=== PATIENT | male | born 1935 | race Caucasian/White ===

== ENCOUNTER 2017-11-17 22:33 | Inpatient (IN) ==
[2017-11-18] MEDS ORDERED: Naloxone 0.4 MG/ML INJ IVP PRN (01:01)
[2017-11-18] MEDS ORDERED: 0.9 % Sodium Chloride 1,000 ML IVC SCH ×2 (01:15→01:51)
--- NOTE | 2017-11-18 01:18 | Internal Med History&Physical ---
<Tao Latham - Last Filed: 11/18/17 01:44> Date of Encounter: 11/18/17 Time of Encounter: 01:14 Assessment and Plan (1) Severe sepsis Current visit: Yes Status: Acute Severe sepsis secondary to UTI Sepsis criteria: Fever (103), Tachycardia (110), Tachypnea (28), Lactic Acid 11.1, Suspected UTI The patient has longstanding history of urinary retention and has been self- catheterizing in unsanitary ways according to family He did receive 3 liters fluid in the ED at [facility] We will get repeat lactic acid, blood cultures, urine culture, VBG We will give IV tylenol, 1L bolus of fluid, and then provide maintenance fluids We will start ceftriaxone IV pending cultures (2) UTI (urinary tract infection), bacterial Current visit: Yes Status: Acute Urinary tract infection, suspected, causative agent unknown Likely secondary to urinary retention + Self-catheterization We will start a au catheter, collect UA + Urine Cultures + Blood cultures Start Rocephin pending cultures (3) Acute encephalopathy Current visit: Yes Status: Acute Acute metabolic encephalopathy, likely secondary to severe sepsis and lactic acidosis Baseline mental status is unknown, although family state he is typically independent Although he was found on the group and reportedly "couldn't move" earlier, it's likely more related to infection Patient head CT was negative for intracranial process The patient has improved in mental function since his initial arrival to [place] We will continue to monitor (4) JORGE LUIS (acute kidney injury) Current visit: Yes Status: Acute Acute kidney injury, baseline renal function unknown Likely secondary to pre-renal azotemia/dehydration vs. Rhabdo, patient appears dry Serum cr 3.78, eGFR 15. Last known 09/27 serum cr. 1.43 The patient will receive one more bolus of NS, and then will receive 125mls/hr NS maintenance fluids Avoid nephrotoxic drugs, repeat BMP and CK (5) Dementia Current visit: Yes Status: Suspected Suspected dementia of unknown etiology [id number] states that he has several first degree relatives with dementia She says he's been forgetful, and has been failing to care for himself appropriately Baseline mental status is unknown at this time We will continue to monitor Qualifiers: Dementia type: unspecified type Dementia behavioral disturbance: with behavioral disturbance Qualified Code(s): 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 CT of all spinal levels show no jenaro abnormalities (7) Code status needs review Current visit: Yes Status: Acute Patient does not currently have advanced directive, however the family appears to be unsure about his wishes regarding code status. At this time, we will designate him a FULL CODE, however as mental function improves, if possible, the topic of code status should be addressed more thoroughly with the patient. (8) DVT prophylaxis Current visit: Yes Status: Acute SQ Heparin Internal Medicine - H&P: HPI Chief complaint: Weakness, altered mental status Admitted From: Intrahospital Transfer Plans for Post Hospital Care: Home History of present illness: Mr. Alejo is a 82 year old male with unknown medical history who presented to the [facility] ED[facility] to altered mental status and weakness. The patient apparently was found on the floor next to his bed by his sister at approximately 5:30 or 6 PM and was unable to talk, or move. The patient has never experienced this before. His medical history is largely unknown, and was given by his brother and [id number]. Apparently the patient has had problems with urinary retention for approximately one year and has seen Dr. Brown for approximately 3 weeks ago. One week ago he began self catheterizing and there was concern that the patient was not doing it in a sanitary way. Apparently he also has been relatively forgetful, and did not remember learning to do it properly. Despite this, the patient was operating well until today when he was found on the floor. It is not known how long he was on the floor, however he was apparently unable to move and can only move his eyes at the time he was found. He also is complaining of back pain earlier and yesterday. His sister- in-law mentions that she is concerned that he may be developing dementia. He apparently lives with 2 of the sisters who have argued developed Alzheimer's, and she has noticed that he has become more forgetful in recent times. He also appears to be withdrawing more, and is not overly social or willing to disclose facts about his life to anyone, including family. Because of this, she is unsure of whether or not he has significant medical history. She does say that [facility] approximately one year ago when he was kicked out of their service, and he only recently started seeing a nurse practitioner for primary care who started to his blood pressure medications again. They are unaware of any other concerns from the patient. Past Med Surg Social Fam HX - Past Medical History Medical history: cancer - Social History Smoking Status: Current every day smoker Smokeless Tobacco Status: No Alcohol use: occasionally Drug use: none Internal Medicine - H&P: Meds 3 Allergy/AdvReac Type Severity Reaction Status Date / Time No Known Drug Allergies Allergy Unknown none Verified 11/18/17 01:29 ROS unobtainable: due to mental status Review of systems: The patient is unable to communicate effectively, nor is he able to respond appropriately to any sort of questions. - Constitutional Vitals: Temp Pulse Resp BP Pulse Ox 103.0 F H 110 28 145/79 97 11/18/17 00:23 11/18/17 00:23 11/18/17 00:23 11/18/17 00:23 11/18/17 00:23 Exam: Gen.: Vitals noted. patient is alert only to physical stimuli, is not oriented nor can answer any questions or respond to any orders HEENT: oropharynx clear, Normocephalic, atraumatic Neck: Supple. No adenopathy. Cardiac: RRR but rapid, no murmur, +S1/S2 Pulmonary: CTA bilaterally, no wheezes, rales or rhonchi, equal chest expansion Abdomen: soft, patient did show visible grimace on face upon palpation of the lower abdomen Backlimited exam, patient did not seem to respond anymore so to stimulation of the baclofen just turning in general Extremities: 1+ BLE edema, nontender calf, no cyanosis or clubbing Neuro: difficult to assess due to altered mental status and somnolence <Janie Toussaint - Last Filed: 11/18/17 06:10> Date of Encounter: 11/18/17 Internal Medicine - H&P: HPI History of present illness: Mr. Alejo is a 82 year old male All Systems PM: A 10-system review of systems was performed and is negative for pertinent findings except as documented above in the HPI. - Constitutional Vitals: Temp Pulse Resp BP Pulse Ox 98.7 F 74 22 103/54 97 11/18/17 05:06 11/18/17 05:06 11/18/17 05:06 11/18/17 05:06 11/18/17 05:06 Internal Med - H&P Results - Labs CBC & Chem 7: 11/18/17 01:35 11/18/17 01:35 Labs: Short CBC 11/18/17 Range/Units 01:35 WBC 26.7 H (4.3-11.1) K/mcL Hgb 11.8 L (12.9-16.9) g/dL Hct 34.5 L (37.5-50.1) % Plt Count 201 (140-400) K/mcL Neutrophils # 24.7 H (1.6-8.9) K/mcL BMP 11/18/17 01:35 Sodium 140 Potassium 4.0 Chloride 110 H Carbon Dioxide 16 L BUN 54 H Creatinine 3.26 H Glucose 129 H Calcium 8.6 Cardiac Enzymes 11/18/17 Range/Units 01:35 Troponin I 0.51 H* (< 0.04) ng/mL Liver Function 11/18/17 Range/Units 01:35 Total Bilirubin 0.9 (0.3-1.0) mg/dL AST 53 H (13-39) Units/L ALT 13 (7-52) Units/L Alkaline Phosphatase 116 H (34-104) Units/L Albumin 3.2 L (3.5-5.7) g/dL Urine 11/18/17 Range/Units 03:10 Urine Color Yellow (Yellow) Urine Clarity Cloudy A (Clear) Urine pH 8.5 H (5.0-8.0) pH Units Ur Specific [place] 1.015 (1.010-1.025) Urine Protein 100 H (Neg-Trace) mg/dL Urine Glucose (UA) Normal (Normal) mg/dL - ABG Interpretation ABG results: 11/18/17 01:53 VBG pH 7.25 L VBG pCO2 38 L VBG pO2 45 VBG HCO3 17 L - Attending Attestation I examined this patient and my medical decision-making was reviewed with the Resident Physician Dr. Latham. I agree with the documented findings, disposition and treatment plan as described except to the extent set forth below. This is an 82 y/o M with known PMH of Dementia, HTN, BPH, chronic urinary incontinence for which pt has been following with Urology Dr. Brown who suggested for frequent self straight catheter at home, now he was taken to [facility] last night when family found him on the floor in unresponsive and confused state. Pt does have severe sepsis with possible UTI. He is admitted here for further higher level of care. Pt is still confused and incoherent, however he started waking up now. Gen: Semi alert, awake, not oriented... unable to follow any commands Chest: Diminished BS b/l no crackles Heart: S1S2+ Tachycardia Ext: No edema, no tenderness a/p 1. Severe sepsis 2. Acute UTI 3. Acute delirium due to toxic + Metabolic encephalopathy IV hydration Empirical abx Rocephin f/u on Urine cx, blood cx trend on lactic acid 4. Acute NSTEMI Due to demand ischemia with Sepsis Cont trend on trop 5. JORGE LUIS IV fluids monitor Cr closely will obtain U/S of Kidney
[2017-11-18] MEDS ORDERED: 0.9 % Sodium Chloride 1,000 ML IVC ONE (01:49)
[2017-11-18] MEDS ORDERED: Acetaminophen IV 1,000 MG/100 ML INFUS..BTL IVPB ONE (01:50)
[2017-11-18 01:51] LABS: Basophils # 0.1 K/mcL (0.0-0.2); Basophils % 0.2 %; Hematocrit 34.5 % (37.5-50.1); Hemoglobin 11.8 g/dL (12.9-16.9); Immature Granulocytes % 0.7 % (0-4); Lymphocytes # 0.7 K/mcL (0.6-4.6); Lymphocytes % 2.6 %; Mean Corpuscular HGB Conc 34.2 g/dL (31.6-35.5); Mean Corpuscular Hemoglobin 28.9 pg (28.0-33.3); Mean Corpuscular Volume 84.4 fL (83.0-100.0); Mean Platelet Volume 10.8 fL (9.4-12.4); Monocytes % 3.9 %; Neutrophils # 24.7 K/mcL (1.6-8.9); Platelet Count 201 K/mcL (140-400); Red Blood Count 4.09 M/mcL (4.19-5.50); Red Cell Distribution Width 13.1 % (11.5-14.5); Segmented Neutrophils % 92.6 %
[2017-11-18 01:54] LABS: Prothrombin Time 22.4 Seconds (9.4-12.1)
[2017-11-18 01:57] LABS: Activated Partial Thrombo Time 45.5 Seconds (26.0-36.0)
[2017-11-18 02:04] LABS: VBG HCO3 17 mEq/L (21-27); VBG PCO2 38 mmHg (41-51); VBG PH 7.25 pH Units (7.32-7.42); VBG PO2 45 mmHg (25-50)
[2017-11-18 02:09] LABS: Albumin 3.2 g/dL (3.5-5.7); Bilirubin,Total 0.9 mg/dL (0.3-1.0); Calcium 8.6 mg/dL (8.6-10.3); Globulin 3.1 g/dL (2.4-3.5); Magnesium 1.6 mg/dL (1.6-2.6); Platelet Estimate Normal (Normal); Total Protein 6.3 g/dL (6.4-8.9); Toxic Granulation Present (Not Present); Toxic Vacuolation Present (Not Present)
[2017-11-18] MEDS: cefTRIAXone 1,000 MG in Water for inj. (sterile) 10 ML IVPB SCH (02:25)
[2017-11-18 03:22] LABS: Bilirubin,Urine Negative (Negative); Blood,Urine Large (Negative); Clarity,Urine Cloudy (Clear); Color,Urine Yellow (Yellow); Glucose,Urine (UA) Normal (Normal); Ketones,Urine Negative (Negative); Leukocyte Esterase,Urine Large (Negative); Nitrite,Urine Positive (Negative); PH,Urine 8.5 pH Units (5.0-8.0); Protein,Urine 100 mg/dL (Neg-Trace); Specific Gravity,Urine 1.015 (1.010-1.025); Urobilinogen,Urine Normal (Normal)
[2017-11-18 03:24] LABS: Bacteria,Urine Few per hpf (None-Few); Hyaline Casts,Urine None Seen per lpf (None-Few); RBC,Urine 30-50 per hpf (0-3); Squamous Epithelial Cell,Urine Many per lpf (None-Few); WBC,Urine TNTC per hpf (0-3)
[2017-11-18] MEDS: *HR* Heparin 5,000 UNIT/ML VIAL SQ SCH ×2 (05:03→16:37)
--- NOTE | 2017-11-18 15:41 | Event Note ---
Date of Encounter: 11/18/17 Time of Encounter: 13:15 Patient is somnolent but easily awakes. [id number] at bedside. Patient denies any pain at this time. Is better oriented now but not yet at baseline. Continue antibiotics to treat sepsis. Recent does have elevated INR. Is not on Coumadin. Will recheck tomorrow. If remains elevated, will workup for liver dysfunction. Also has elevated creatinine kinase. Troponins peak at 0.69. Likely demand ischemia. 2-D echocardiogram ordered. Will follow results. Continue IV hydration. Follow renal function closely.
[2017-11-18] MEDS: 0.9 % Sodium Chloride 1,000 ML IVC SCH (16:36)
[2017-11-18] MEDS ORDERED: Perflutren Lipid Microsphere 1.3 ML in 0.9 % Sodium Chloride 8.7 ML IVP ONE (20:34)
[2017-11-19] MEDS: cefTRIAXone 1,000 MG in Water for inj. (sterile) 10 ML IVPB SCH (01:33)
[2017-11-19] MEDS ORDERED: Acetaminophen 325 MG TABLET PO PRN (03:43)
[2017-11-19] MEDS: *HR* Heparin 5,000 UNIT/ML VIAL SQ SCH ×2 (05:34→19:24)
[2017-11-19] MEDS: 0.9 % Sodium Chloride 1,000 ML IVC SCH ×2 (05:35→19:26)
[2017-11-19 08:00] LABS: Basophils % 0.2 %; Eosinophils # 0.2 K/mcL (0.0-0.6); Eosinophils % 1.4 %; Hematocrit 31.4 % (37.5-50.1); Hemoglobin 10.9 g/dL (12.9-16.9); Immature Granulocytes % 0.5 % (0-4); Lymphocytes # 0.9 K/mcL (0.6-4.6); Lymphocytes % 5.6 %; Mean Corpuscular HGB Conc 34.7 g/dL (31.6-35.5); Mean Corpuscular Volume 83.5 fL (83.0-100.0); Mean Platelet Volume 11.1 fL (9.4-12.4); Monocytes # 0.6 K/mcL (0.0-1.3); Monocytes % 3.6 %; Platelet Count 132 K/mcL (140-400); Red Blood Count 3.76 M/mcL (4.19-5.50); Segmented Neutrophils % 88.7 %
[2017-11-19 08:19] LABS: Calcium 7.9 mg/dL (8.6-10.3); Potassium 3.5 mEq/L (3.5-5.1)
[2017-11-19 08:59] LABS: INR 1.9; Prothrombin Time 20.9 Seconds (9.4-12.1)
[2017-11-19] MEDS: Cholecalciferol (D-3) 1,000 UNIT TABLET PO SCH (10:26)
[2017-11-19] MEDS: amLODIPine 5 MG TABLET PO SCH (10:26)
--- NOTE | 2017-11-19 17:00 | Internal Med Progress Note ---
Date of Encounter: 11/19/17 Time of Encounter: 11:35 - Assessment and plan (1) Severe sepsis Current Visit: Yes Status: Acute Assessment and plan: Severe sepsis possibly from urinary tract infection. Blood cultures have been negative so far. Will continue ceftriaxone. WBC count is improving. (2) Acute encephalopathy Current Visit: Yes Status: Resolved Assessment and plan: Patient appears to be back to baseline. Doing well overall. Acute encephalopathy due to severe sepsis. (3) Frequent falls Current Visit: Yes Status: Acute Assessment and plan: Evaluated by physical therapy and recommended placement to skilled rehabilitation. family assessment worker working on this. (4) UTI (urinary tract infection), bacterial Current Visit: Yes Status: Acute Assessment and plan: Patient is being treated with ceftriaxone for possible UTI. Cultures have been negative so far. (5) DVT prophylaxis Current Visit: Yes Status: Acute Assessment and plan: With subcutaneous heparin - Subjective Interval history: Patient is sitting up in chair today. Doing much better. Denies any new complaints. Feels like he is improving. He is more oriented. Tolerating diet well. - Constitutional Vitals: Temp Pulse Resp BP Pulse Ox 98.4 F 79 18 122/88 98 11/19/17 15:41 11/19/17 15:41 11/19/17 15:41 11/19/17 15:41 11/19/17 15:41 General appearance: Present: cooperative, A&O X 3, answers questions appropriately - Neck Neck exam general surgery: Present: supple, trachea midline. Absent: lymphadenopathy - Respiratory Respiratory exam: Present: CTAB. Absent: accessory muscle use, rales, rhonchi, wheezes - Cardiovascular Cardiovascular exam: Present: RRR, +S1, +S2. Absent: diastolic murmur, gallop, rubs, systolic murmur - GI/Abdominal GI/Abdominal exam: Present: normal bowel sounds, soft, no peritoneal signs. Absent: distended, tenderness - Extremities Exam Extremities exam: Present: warm, radial pulses palpable and symmetrical. Absent : calf tenderness, cyanotic, pedal edema - Neurological Exam Neurological exam: Present: alert, oriented X3, no focal deficits. Absent: facial droop, speech deficit Internal Medicine: Result - Labs CBC & Chem 7: 11/19/17 07:51 11/19/17 07:51 Labs: Short CBC 11/19/17 Range/Units 07:51 WBC 16.9 H (4.3-11.1) K/mcL Hgb 10.9 L (12.9-16.9) g/dL Hct 31.4 L (37.5-50.1) % Plt Count 132 L (140-400) K/mcL Neutrophils # 15.0 H (1.6-8.9) K/mcL BMP 11/19/17 07:51 Sodium 138 Potassium 3.5 Chloride 112 H Carbon Dioxide 18 L BUN 51 H Creatinine 2.01 H Glucose 85 Calcium 7.9 L - ABG Interpretation ABG results: PT/INR, D-dimer PT 20.9 Seconds (9.4-12.1) H 11/19/17 08:22 - Impressions Impressions Echocardiogram 11/18/17 09:05 Impressions: LVEF 60%. Normal LV chamber size, wall thickness and function. Mild left ventricular diastolic dysfunction. Normal right ventricular structure and function. No evidence of pulmonary hypertension. No significant valvular dysfunction. Left Ventricular Wall Motion: Rest Echo Findings All wall segments showed normal motion. Findings: Study Quality * Technically adequate exam. ECG Findings * Normal sinus rhythm. Left Ventricle * LVEF 60%. * Normal LV chamber size, wall thickness and function. * Mild left ventricular diastolic dysfunction. Right Ventricle * Normal right ventricular structure and function. Left Atrium * Mildly dilated left atrium. Right Atrium * Normal right atrial size. Interatrial Septum * Interatrial septum not well evaluated. Aortic Valve * Aortic valve not well visualized. * No aortic regurgitation. * No aortic stenosis. Mitral Valve * Normal mitral valve structure and function. * No mitral stenosis. * Trace mitral regurgitation. Tricuspid Valve * Normal tricuspid valve structure and function. * Trace tricuspid regurgitation. * No evidence of pulmonary hypertension. Pulmonic Valve * Pulmonic valve is not well visualized. * No pulmonic regurgitation. Aorta * Normally sized aortic root. Pericardium * The pericardium appears normal. IVC * Normal IVC dimensions and inspiratory collapse. Pulmonary Artery * Normal visualized portions of the main pulmonary artery. Consult Discharge Plan - Plan Referrals: Padmini Hinds, BARREL RIFLER [Primary Care Provider] -
[2017-11-20] MEDS: cefTRIAXone 1,000 MG in Water for inj. (sterile) 10 ML IVPB SCH (03:25)
[2017-11-20] MEDS: 0.9 % Sodium Chloride 1,000 ML IVC SCH (03:45)
[2017-11-20 04:10] LABS: Basophils % 0.2 %; Eosinophils # 0.1 K/mcL (0.0-0.6); Eosinophils % 0.6 %; Hemoglobin 11.3 g/dL (12.9-16.9); Immature Granulocytes % 0.7 % (0-4); Lymphocytes % 8.8 %; Mean Corpuscular HGB Conc 34.2 g/dL (31.6-35.5); Mean Corpuscular Hemoglobin 28.2 pg (28.0-33.3); Mean Corpuscular Volume 82.3 fL (83.0-100.0); Mean Platelet Volume 11.9 fL (9.4-12.4); Monocytes # 0.7 K/mcL (0.0-1.3); Neutrophils # 9.9 K/mcL (1.6-8.9); Platelet Count 134 K/mcL (140-400); Red Blood Count 4.01 M/mcL (4.19-5.50); Red Cell Distribution Width 12.7 % (11.5-14.5); Segmented Neutrophils % 83.7 %
[2017-11-20 04:44] LABS: Calcium 8.2 mg/dL (8.6-10.3); Potassium 3.3 mEq/L (3.5-5.1)
[2017-11-20] MEDS: *HR* Heparin 5,000 UNIT/ML VIAL SQ SCH ×2 (06:14→17:48)
[2017-11-20] MEDS: Cholecalciferol (D-3) 1,000 UNIT TABLET PO SCH (08:32)
[2017-11-20] MEDS: amLODIPine 5 MG TABLET PO SCH (08:32)
--- NOTE | 2017-11-20 16:57 | Internal Med Progress Note ---
Date of Encounter: 11/20/17 Time of Encounter: 10:15 - Assessment and plan (1) Acute encephalopathy Current Visit: Yes Status: Acute Assessment and plan: Patient appears to be agitated today. Could be delirium related to underlying dementia. We will start patient on risperidone at a low-dose. Continue with 1 to 1 sitter at bedside (2) Severe sepsis Current Visit: Yes Status: Resolved Assessment and plan: Cultures have been negative. Leukocytosis is resolving. Will change antibiotic to oral ciprofloxacin. (3) Frequent falls Current Visit: Yes Status: Acute (4) UTI (urinary tract infection), bacterial Current Visit: Yes Status: Acute (5) DVT prophylaxis Current Visit: Yes Status: Acute (6) Elevated INR Current Visit: Yes Status: Acute Assessment and plan: Patient has elevated INR. Unable to do ultrasound due to patient's noncompliance at this time. Could be nutritional. Will place patient on vitamin supplements. (7) Elevated troponin Current Visit: Yes Status: Acute Assessment and plan: Most likely from demand ischemia. (8) Dementia Current Visit: Yes Status: Suspected Assessment and plan: Patient likely has underlying dementia. Will attempt to get CT scan of the head later today or tomorrow if patient is better compliant. Qualifiers: Dementia type: unspecified type Dementia behavioral disturbance: with behavioral disturbance Qualified Code(s): 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 - Subjective Interval history: Patient has been disoriented and combative with staff this morning. Has one-to- one sitter at bedside. Not responding appropriately to questions. Not willing to undergo examination at this time. - Constitutional Vitals: Temp Pulse Resp BP Pulse Ox 98.9 F 76 16 170/92 99 11/20/17 15:35 11/20/17 15:48 11/20/17 15:48 11/20/17 15:35 11/20/17 15:35 General appearance: Absent: cooperative, answers questions appropriately Exam: Evaluated patient at bedside. Patient is noncooperative and Not allowing me to perform examination today. Internal Medicine: Result - Labs CBC & Chem 7: 11/20/17 03:06 11/20/17 03:06 Labs: Short CBC 11/20/17 Range/Units 03:06 WBC 11.8 H (4.3-11.1) K/mcL Hgb 11.3 L (12.9-16.9) g/dL Hct 33.0 L (37.5-50.1) % Plt Count 134 L (140-400) K/mcL Neutrophils # 9.9 H (1.6-8.9) K/mcL BMP 11/20/17 03:06 Sodium 138 Potassium 3.3 L Chloride 108 H Carbon Dioxide 21 L BUN 40 H Creatinine 1.58 H Glucose 115 H Calcium 8.2 L - ABG Interpretation ABG results: PT/INR, D-dimer PT 20.9 Seconds (9.4-12.1) H 11/19/17 08:22 Consult Discharge Plan - Plan Referrals: Padmini Hinds, COMMUNITY OUTREACH COORDINATOR [Primary Care Provider] -
[2017-11-20] MEDS ORDERED: *HR* Phytonadione 5 MG TABLET PO ONE (17:06)
[2017-11-20] MEDS ORDERED: 0.9 % Sodium Chloride 1,000 ML IVC SCH (20:45)
[2017-11-20] MEDS: risperiDONE 0.25 MG TABLET PO SCH (21:05)
[2017-11-21] MEDS: cefTRIAXone 1,000 MG in Water for inj. (sterile) 10 ML IVPB SCH (02:06)
[2017-11-21] MEDS ORDERED: Haloperidol Lactate 5 MG/ML VIAL IVP ONE (02:42)
[2017-11-21] MEDS ORDERED: Haloperidol Lactate 5 MG/ML VIAL ONE (02:44)
[2017-11-21] MEDS: *HR* Heparin 5,000 UNIT/ML VIAL SQ SCH ×2 (05:49→16:45)
[2017-11-21] MEDS: Cholecalciferol (D-3) 1,000 UNIT TABLET PO SCH ×2 (07:47→11:25)
[2017-11-21] MEDS: Multivit/Ca/Min/Fe/FA 1 TAB TABLET PO SCH ×2 (07:47→11:25)
[2017-11-21] MEDS: amLODIPine 5 MG TABLET PO SCH ×2 (07:47→11:25)
[2017-11-21 07:54] LABS: Basophils % 0.3 %; Eosinophils # 0.3 K/mcL (0.0-0.6); Eosinophils % 2.1 %; Hematocrit 33.4 % (37.5-50.1); Hemoglobin 11.3 g/dL (12.9-16.9); Immature Granulocytes % 0.4 % (0-4); Lymphocytes # 1.2 K/mcL (0.6-4.6); Lymphocytes % 10.5 %; Mean Corpuscular HGB Conc 33.8 g/dL (31.6-35.5); Mean Corpuscular Volume 82.7 fL (83.0-100.0); Mean Platelet Volume 12.2 fL (9.4-12.4); Monocytes # 1.5 K/mcL (0.0-1.3); Monocytes % 12.9 %; Neutrophils # 8.7 K/mcL (1.6-8.9); Platelet Count 120 K/mcL (140-400); Red Blood Count 4.04 M/mcL (4.19-5.50); Red Cell Distribution Width 12.9 % (11.5-14.5); Segmented Neutrophils % 73.8 %
[2017-11-21 08:49] LABS: Calcium 8.1 mg/dL (8.6-10.3)
[2017-11-21 08:57] LABS: INR 1.6; Prothrombin Time 17.6 Seconds (9.4-12.1)
--- NOTE | 2017-11-21 13:34 | Internal Med Progress Note ---
Date of Encounter: 11/21/17 Time of Encounter: 10:30 - Assessment and plan (1) Acute encephalopathy Current Visit: Yes Status: Acute Assessment and plan: Waxing and waning. Doing better today. CT scan of the head done yesterday shows no acute abnormality but patient does have age-related diffuse mild cortical atrophy and chronic microvascular changes. Continue treating underlying infection. Started on Risperdal at bedtime last night. We will increase to risperidone twice a day from tomorrow. Does not have one-to-one sitter at bedside anymore. Plan for discharge to skilled rehabilitation tomorrow. (2) Severe sepsis Current Visit: Yes Status: Resolved Assessment and plan: Complete antibiotic course with ciprofloxacin for 5 more days. (3) Frequent falls Current Visit: Yes Status: Acute Assessment and plan: Evaluated by physical therapy and recommended placement to skilled rehabilitation. Plan for discharge to skilled rehabilitation tomorrow if patient does not have any other acute issues overnight. (4) UTI (urinary tract infection), bacterial Current Visit: Yes Status: Acute (5) DVT prophylaxis Current Visit: Yes Status: Acute (6) Elevated INR Current Visit: Yes Status: Acute Assessment and plan: Likely nutritional. Ultrasound of the abdomen done today. We will await results. (7) Elevated troponin Current Visit: Yes Status: Acute (8) Dementia Current Visit: Yes Status: Suspected Assessment and plan: Patient does have mild cortical atrophy and may have underlying dementia. Will need further evaluation as outpatient. Remains at risk for developing episodes of delirium. We will minimize environmental stimuli. Started on risperidone. May use Haldol if needed for agitation if it puts patient at risk of self-harm or harm to others. Qualifiers: Dementia type: unspecified type Dementia behavioral disturbance: with behavioral disturbance Qualified Code(s): 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 - Subjective Interval history: Patient is doing better today. Disoriented but not agitated. Allows examination. Denies any new complaints at this time. No shortness of breath. No fever or chills overnight. He did become agitated last night and received 2.5 mg of Haldol. He was able to sleep well after that. - Constitutional Vitals: Temp Pulse Resp BP Pulse Ox 98.0 F 62 18 148/72 99 11/21/17 11:22 11/21/17 11:22 11/21/17 11:22 11/21/17 11:22 11/21/17 11:22 General appearance: Present: cooperative, A&O X 1, answers questions appropriately - Neck Neck exam general surgery: Present: supple, trachea midline. Absent: lymphadenopathy - Respiratory Respiratory exam: Present: CTAB. Absent: accessory muscle use, rales, rhonchi, wheezes - Cardiovascular Cardiovascular exam: Present: RRR, +S1, +S2. Absent: diastolic murmur, gallop, rubs, systolic murmur - GI/Abdominal GI/Abdominal exam: Present: normal bowel sounds, soft, no peritoneal signs. Absent: distended, tenderness - Extremities Exam Extremities exam: Present: warm, radial pulses palpable and symmetrical. Absent : calf tenderness, cyanotic, pedal edema - Neurological Exam Neurological exam: Present: alert, no focal deficits. Absent: facial droop, speech deficit Internal Medicine: Result - Labs CBC & Chem 7: 11/21/17 06:45 11/21/17 06:45 Labs: Short CBC 11/21/17 Range/Units 06:45 WBC 11.8 H (4.3-11.1) K/mcL Hgb 11.3 L (12.9-16.9) g/dL Hct 33.4 L (37.5-50.1) % Plt Count 120 L (140-400) K/mcL Neutrophils # 8.7 (1.6-8.9) K/mcL BMP 11/21/17 06:45 Sodium 137 Potassium 3.0 L Chloride 107 Carbon Dioxide 21 L BUN 39 H Creatinine 1.52 H Glucose 105 Calcium 8.1 L - ABG Interpretation ABG results: PT/INR, D-dimer PT 17.6 Seconds (9.4-12.1) H 11/21/17 08:24 - Impressions Impressions Head CT 11/20/17 17:04 IMPRESSION: No acute intracranial abnormality. Senescent changes including chronic microvascular change. D/ / Nydia Nance MD / Nydia Nance MD Interpreting Provider: Nydia Nance MD Consult Discharge Plan - Plan Referrals: Padmini Hinds OUTPATIENT SERVICES DIRECTOR [Primary Care Provider] -
[2017-11-21] MEDS: risperiDONE 0.25 MG TABLET PO SCH (20:21)
[2017-11-22] MEDS: *HR* Heparin 5,000 UNIT/ML VIAL SQ SCH (06:28)
[2017-11-22] MEDS: Cholecalciferol (D-3) 1,000 UNIT TABLET PO SCH (07:41)
[2017-11-22] MEDS: amLODIPine 5 MG TABLET PO SCH (07:41)
[2017-11-22] MEDS: Multivit/Ca/Min/Fe/FA 1 TAB TABLET PO SCH (07:41)
[2017-11-22 08:49] LABS: Basophils % 0.4 %; Eosinophils # 0.5 K/mcL (0.0-0.6); Eosinophils % 4.4 %; Hematocrit 30.2 % (37.5-50.1); Hemoglobin 10.3 g/dL (12.9-16.9); Immature Granulocytes % 0.6 % (0-4); Lymphocytes # 1.6 K/mcL (0.6-4.6); Lymphocytes % 15.8 %; Mean Corpuscular HGB Conc 34.1 g/dL (31.6-35.5); Mean Corpuscular Hemoglobin 28.5 pg (28.0-33.3); Mean Corpuscular Volume 83.4 fL (83.0-100.0); Mean Platelet Volume 11.9 fL (9.4-12.4); Monocytes # 1.4 K/mcL (0.0-1.3); Monocytes % 13.4 %; Neutrophils # 6.7 K/mcL (1.6-8.9); Nucleated Red Blood Cells 0.2 /100 WBC (0); Platelet Count 140 K/mcL (140-400); Red Blood Count 3.62 M/mcL (4.19-5.50); Segmented Neutrophils % 65.4 %
[2017-11-22] MEDS ORDERED: risperiDONE 0.25 MG TABLET PO SCH (09:00)
[2017-11-22 09:08] LABS: Magnesium 1.6 mg/dL (1.6-2.6); Phosphorous 2.5 mg/dL (2.7-4.5); Potassium 3.6 mEq/L (3.5-5.1)
--- NOTE | 2017-11-22 11:42 | Discharge Summary ---
Date of Encounter: 11/22/17 Time of Encounter: 11:40 - Discharge Diagnosis (1) Acute encephalopathy Priority: Primary Status: Acute (2) Severe sepsis Priority: Secondary Status: Resolved (3) Frequent falls Priority: Secondary Status: Acute (4) UTI (urinary tract infection), bacterial Priority: Secondary Status: Acute (5) DVT prophylaxis Priority: Secondary Status: Acute (6) Elevated INR Priority: Secondary Status: Acute (7) Elevated troponin Priority: Secondary Status: Acute (8) Dementia Priority: Secondary Status: Suspected Qualifiers: Dementia type: unspecified type Dementia behavioral disturbance: with behavioral disturbance Qualified Code(s): 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 - Discharge Medications Prescriptions: Ciprofloxacin [Cipro] 500 mg PO BID #8 tablet Docusate [Colace] 100 mg PO BID #30 capsule Home Medications: Cholecalciferol (Vitamin D3) [Vitamin D3] 5,000 unit PO DAILY 11/18/17 [History] Losartan [Cozaar] 50 mg PO DAILY 11/18/17 [History] amLODIPine [Norvasc] 5 mg PO DAILY 11/18/17 [History] Ciprofloxacin [Cipro] 500 mg PO BID #8 tablet 11/22/17 [Rx] Docusate [Colace] 100 mg PO BID #30 capsule 11/22/17 [Rx] Multivit/Ca/Min/Fe/FA [Thera M Plus] 1 tab PO DAILY tablet 11/22/17 [Rx] risperiDONE [RisperDAL] 0.5 mg PO HS tablet 11/22/17 [Rx] Allergies/Adverse Reactions: 3 Allergy/AdvReac Type Severity Reaction Status Date / Time No Known Drug Allergies Allergy Unknown none Verified 11/18/17 01:29 Procedures/tests Complete & Pending: Procedures Performed prior 72 hours Category Date Time Status CT head/brain wo con [CT] Routine Cat Scan 11/20/17 17:04 Completed US abdomen limited [US] Routine Exams 11/21/17 Completed EKG [ECG 12 lead ECG] [ECG] Stat Y 11/20/17 18:50 Stop Req Date of admission: 11/18/17 01:10 Primary care physician: Padmini Hinds CNP Consults: 11/18/17 01:04 Consult to Occupational Therapy [CONS] Routine Comment: Evaluate, develop and implement POC Reason for Consult: weakness, frequent falls Consult to Physical Therapy [CONS] Routine Comment: Evaluate, develop and implement POC Reason for Consult: weakness, frequent falls Consult to Speech Therapy [CONS] Routine Comment: Evaluate, develop and implement POC Reason for Consult: weakness/difficulty speaking, swallow eval Call Completed: No 11/18/17 04:49 Consult to Malt House Loader [CONS] Routine Reason for SW Consult: lives at home with elderly sisters, now confused Discharging clinician: Chester Farley Anticipated date of discharge: 11/22/17 - Patient Status Disposition: Transfer SNF Condition: Fair Functional capacity at discharge: wheelchair bound Overall status at discharge: patient is progressing back to baseline - Discharge Instructions Instructions: Sepsis (DC) Follow Up With: Mathew Brown MD [Partnered Physician] - (in 1 week) Padmini Hinds CNP [Primary Care Provider] - (1 week ) Ben Alcazar DO [Partnered Physician] - (1-2 weeks) Additional Instructions: Please leave [place] catheter in until the patient follows up with urology as outpatient - Diet and Activity Activity: as per physical therapy, increase activity as tolerated Diet: low fat, low cholesterol, low salt diet Hospital course: Mr. Alejo is a 82 year old male patient who was hospitalized here with sepsis indicated encephalopathy possibly related to urinary tract infection. Patient lives alone and had been self catheterizing per urology recommendations on his own. However he was apparently not following sterile precautions. She had apparently been functioning well until prior to presentation here. He was found on the floor and so was brought into the ER. There is concern for underlying dementia as patient had become increasingly forgetful. He was started on treatment with improvement in his symptoms clinically. His encephalopathy did improve but he became delirious 2 days back. As such cultures have remained negative here. He was evaluated by physical therapy and recommended placement to skilled rehabilitation. Patient did have mild elevation in his troponin which is likely due to demand ischemia. he was started on risperidone which seems to be helping with his symptoms. He most likely has underlying dementia. CT scan of the head did show cerebral atrophy. He will need follow-up as outpatient for further evaluation and diagnosis. 2- D echocardiogram done here showed normal EF of 60% with mild left ventricular diastolic dysfunction. Patient also has prolonged INR which is likely due to dietary deficiency. Liver ultrasound did not show any signs of cirrhosis. His INR has improved with vitamin supplementation. At this time, he is clinically stable for discharge. He was evaluated by physical therapy and recommended placement to skilled rehabilitation. He will be discharged to skilled rehabilitation later today. He will complete antibiotic course with ciprofloxacin. He will also continue to take risperidone at low dose at bedtime. - Time Spent with Patient Total time spent providing and/or coordinating discharge services: Greater than 30 minutes (40 min) - Constitutional Vitals: Temp Pulse Resp BP Pulse Ox 98.5 F 72 18 141/78 99 11/22/17 07:46 11/22/17 07:46 11/22/17 07:46 11/22/17 07:46 11/22/17 07:46 General appearance: Present: cooperative, A&O X 1, answers questions appropriately - Neck Neck exam general surgery: Present: supple, trachea midline. Absent: lymphadenopathy - Respiratory Respiratory exam: Present: CTAB. Absent: accessory muscle use, rales, rhonchi, wheezes - Cardiovascular Cardiovascular exam: Present: RRR, +S1, +S2. Absent: diastolic murmur, gallop, rubs, systolic murmur - GI/Abdominal GI/Abdominal exam: Present: normal bowel sounds, soft, no peritoneal signs. Absent: distended, tenderness - Extremities Exam Extremities exam: Present: warm, radial pulses palpable and symmetrical. Absent : calf tenderness, cyanotic, pedal edema - Neurological Exam Neurological exam: Present: alert, altered, no focal deficits. Absent: facial droop, speech deficit
--- NOTE | 2017-11-22 11:58 | Physician Discharge Referral ---
ExtendedCare Referral Info Provider in Charge after Transfer: PCP Institutional Level of Care: Skilled - Diagnosis (1) Acute encephalopathy Priority: Primary Status: Acute (2) Severe sepsis Priority: Secondary Status: Resolved (3) Frequent falls Priority: Secondary Status: Acute (4) UTI (urinary tract infection), bacterial Priority: Secondary Status: Acute (5) Elevated INR Priority: Secondary Status: Acute (6) Elevated troponin Priority: Secondary Status: Acute (7) Dementia Priority: Secondary Status: Suspected (8) DVT prophylaxis Priority: Secondary Status: Acute Prognosis: Fair Aware of Diagnosis: Family Aware of Prognosis: Family - Transfer Medications Prescriptions: Ciprofloxacin [Cipro] 500 mg PO BID #8 tablet Home Medications: Cholecalciferol (Vitamin D3) [Vitamin D3] 5,000 unit PO DAILY 11/18/17 [History] Losartan [Cozaar] 50 mg PO DAILY 11/18/17 [History] amLODIPine [Norvasc] 5 mg PO DAILY 11/18/17 [History] Ciprofloxacin [Cipro] 500 mg PO BID #8 tablet 11/22/17 [Rx] Multivit/Ca/Min/Fe/FA [Thera M Plus] 1 tab PO DAILY tablet 11/22/17 [Rx] risperiDONE [RisperDAL] 0.5 mg PO HS tablet 11/22/17 [Rx] Allergies/Adverse Reactions: 3 Allergy/AdvReac Type Severity Reaction Status Date / Time No Known Drug Allergies Allergy Unknown none Verified 11/18/17 01:29 - Respiratory Orders Smoking Cessation: Smoking cessation has been advised. For more information, call the [place] Tobacco Quit Line at 1-802-HFEY-NOW. - Ancillary Orders May consult with Dentist, Flight Attendant/Inflight Manager, Epic Analyst PRN - Advance Directives Code Status: Full Code - Mobility Orders Ambulate (per PT) - Rehabiliation Orders Rehab Potential: Fair Rehab Orders: Evaluation for Physical Therapy, Evaluation for Occupational Therapy - Diet Orders Cardiac CERTIFICATION: I certify that the transfer of the above named patient to an Extended Care Facility is necessary for the continuing treatment of the diagnosis listed. The above information is true and accurate reflection of patient's current condition. Confidential - Redisclosure prohibited without a patient's written consent.
[2017-11-22 13:27] VITALS: BP 137/65
--- NOTE | 2017-11-23 16:18 | Electrocardiograph Report ---
[address] [place] [address] Test Date: 2017-11-20 Pat Name: Paco Alejo Department: 110 Room: 2N02 Gender: M District [employer] Director: : [id number] Requested By: Shayan Courtney Order Number: [id number] Reading MD: Tr Youngblood DO Measurements Intervals [place] Rate: 154 P: GA: 0 QRS: -57 QRSD: 92 T: 59 QT: 296 QTc: 383 Interpretive Statements SUPRAVENTRICULAR TACHYCARDIA POSSIBLE ANTERIOR MYOCARDIAL INFARCTION, OF INDETERMINATE AGE POSSIBLE INFERIOR MYOCARDIAL INFARCTION, OF INDETERMINATE AGE Electronically Signed On 11-23-2017 16:16:11 EST by Tr Youngblood DO
== END 2017-11-22 18:50 | DRG 871 ==
LOC: 2NNU
PROVIDERS: ADMIT Internal Medicine; ATTEND Internal Medicine

== ENCOUNTER 2018-06-27 09:30 | Inpatient (IN) ==
--- NOTE | 2018-06-27 09:48 | Emergency Department Note ---
Disposition Clinical Impression: Elevated troponin, Elevated INR, Elevated brain natriuretic peptide (BNP) level Sepsis Qualifiers: Sepsis type: sepsis due to unspecified organism Qualified Code(s): A41.9 - Sepsis, unspecified organism Urinary tract infection Qualifiers: Urinary tract infection type: catheter-associated UTI Indwelling urinary catheter type: indwelling urethral catheter Encounter type: initial encounter Qualified Code(s): T83.511A - Infection and inflammatory reaction due to indwelling urethral catheter, initial encounter Diarrhea Qualifiers: Diarrhea type: presumed infectious Qualified Code(s): R19.7 - Diarrhea, unspecified Disposition: Admitted As Inpatient General Adult HPI - General Chief complaint: ED Weakness Stated complaint: Needs cath changed/cough/weakness Time Seen by Provider: 06/27/18 09:35 Source: patient Mode of arrival: ambulatory Limitations: no limitations Nursing Notes Reviewed: Yes Vital Signs Reviewed: Yes - History of Present Illness Pain Scale: 0 - Related Data Home Medications Medication Instructions Recorded Confirmed [place] Oil [Venelex 60 gm TP BID 06/27/18 06/27/18 Ointment] Cholecalciferol (D-3) [Vitamin D] 5,000 unit PO DAILY 06/27/18 06/27/18 Ferrous Sulfate [Iron] 325 mg PO BID 06/27/18 06/27/18 Furosemide [Lasix] 40 mg PO DAILY 06/27/18 06/27/18 Hydralazine HCl 50 mg PO TID 06/27/18 06/27/18 Melatonin/Pyridoxine HCl (B6) 2 tab PO HS PRN 06/27/18 06/27/18 [Melatonin 3 mg Tablet] Potassium Chloride 20 meq PO DAILY 06/27/18 06/27/18 Allergies Allergy/AdvReac Type Severity Reaction Status Date / Time No Known Drug Allergies Allergy Unknown none Verified 06/27/18 14:16 Past Medical History - Past Medical History Medical history: Reports: cancer, CHF, hypertension, renal disease Psychiatric history: Reports: no psych history - Social History Smoking Status: Former smoker Smokeless Tobacco Status: No Alcohol use: Reports: none Drug use: Reports: none Physical Exam - General General appearance: alert, in no apparent distress Course Vital Signs Temperature 98.6 F 06/27/18 09:32 Pulse Rate 94 06/27/18 09:32 Respiratory Rate 18 06/27/18 09:32 Blood Pressure 134/73 06/27/18 09:32 O2 Sat by Pulse Oximetry 99 06/27/18 09:32 Temperature 99.5 F 06/27/18 19:12 Pulse Rate 85 06/27/18 19:12 Respiratory Rate 16 06/27/18 19:12 Blood Pressure 127/63 06/27/18 19:12 O2 Sat by Pulse Oximetry 97 06/27/18 19:12 Oxygen Delivery Oxygen Delivery Room Air Medical Decision Making - Lab Data Result diagrams: 06/27/18 11:09 06/27/18 11:09 Lab Results 06/27/18 06/27/18 06/27/18 Range/Units 11:09 11:09 11:09 WBC 36.4 H* (4.3-11.1) K/mcL RBC 4.17 L (4.19-5.50) M/mcL Hgb 12.4 L (12.9-16.9) g/dL Hct 35.2 L (37.5-50.1) % MCV 84.4 (83.0-100.0) fL MCH 29.7 (28.0-33.3) pg MCHC 35.2 (31.6-35.5) g/dL RDW 13.9 (11.5-14.5) % Plt Count 209 (140-400) K/mcL MPV 10.7 (9.4-12.4) fL Seg Neutrophils % 73.0 % Band Neutrophils % 17.0 H (0-4) % Lymphocytes % 7.0 % Monocytes % 3.0 % Neutrophils # 32.8 H (1.6-8.9) K/mcL Lymphocytes # 2.6 (0.6-4.6) K/mcL Monocytes # 1.1 (0.0-1.3) K/mcL Platelet Estimate Normal (Normal) PT (9.4-12.1) Seconds INR Sodium 136 (136-145) mEq/L Potassium 3.9 (3.5-5.1) mEq/L Chloride 107 (98-107) mEq/L Carbon Dioxide 17 L (23-29) mEq/L BUN 71 H (8-23) mg/dL Creatinine 3.36 H (0.70-1.30) mg/dL Est GFR ( Amer) 21 L (> 60) Est GFR (Non-Af Amer) 18 L (> 60) BUN/Creatinine Ratio 21 (6-26) Glucose 134 H (70-105) mg/dL Calculated Osmolality 305 H (280-300) Lactic Acid (0.5-2.2) mmol/L Calcium 9.3 (8.6-10.3) mg/dL Total Bilirubin 0.8 (0.3-1.0) mg/dL Direct Bilirubin 0.2 (0.0-0.2) mg/dL Indirect Bilirubin 0.6 (0.0-1.2) mg/dL AST 30 (13-39) Units/L ALT 23 (7-52) Units/L Alkaline Phosphatase 93 (34-104) Units/L Troponin I 0.99 H* (< 0.04) ng/mL B-Natriuretic Peptide 725 H (Less than 100) pg/mL Serum Total Protein 7.1 (6.4-8.9) g/dL Albumin 3.5 (3.5-5.7) g/dL Globulin 3.6 H (2.4-3.5) g/dL Albumin/Globulin Ratio 1.0 L (1.1-2.2) Urine Color (Yellow) Urine Clarity (Clear) Urine pH (5.0-8.0) pH Units Ur Specific Raven (1.010-1.025) Urine Protein (Neg-Trace) mg/dL Urine Glucose (UA) (Normal) mg/dL Urine Ketones (Negative) mg/dL Urine Blood (Negative) Urine Nitrite (Negative) Urine Bilirubin (Negative) Urine Urobilinogen (Normal) mg/dL Ur Leukocyte Esterase (Negative) Urine Microscopic RBC (0-3) per hpf Urine Microscopic WBC (0-3) per hpf Ur Squamous Epith Cells (None-Few) per lpf Urine Bacteria (None-Few) per hpf Ur Culture Indicated? (NO) 06/27/18 06/27/18 06/27/18 Range/Units 11:09 12:12 14:01 WBC (4.3-11.1) K/mcL RBC (4.19-5.50) M/mcL Hgb (12.9-16.9) g/dL Hct (37.5-50.1) % MCV (83.0-100.0) fL MCH (28.0-33.3) pg MCHC (31.6-35.5) g/dL RDW (11.5-14.5) % Plt Count (140-400) K/mcL MPV (9.4-12.4) fL Seg Neutrophils % % Band Neutrophils % (0-4) % Lymphocytes % % Monocytes % % Neutrophils # (1.6-8.9) K/mcL Lymphocytes # (0.6-4.6) K/mcL Monocytes # (0.0-1.3) K/mcL Platelet Estimate (Normal) PT 26.6 H (9.4-12.1) Seconds INR 2.4 Sodium (136-145) mEq/L Potassium (3.5-5.1) mEq/L Chloride (98-107) mEq/L Carbon Dioxide (23-29) mEq/L BUN (8-23) mg/dL Creatinine (0.70-1.30) mg/dL Est GFR ( Amer) (> 60) Est GFR (Non-Af Amer) (> 60) BUN/Creatinine Ratio (6-26) Glucose (70-105) mg/dL Calculated Osmolality (280-300) Lactic Acid 1.6 (0.5-2.2) mmol/L Calcium (8.6-10.3) mg/dL Total Bilirubin (0.3-1.0) mg/dL Direct Bilirubin (0.0-0.2) mg/dL Indirect Bilirubin (0.0-1.2) mg/dL AST (13-39) Units/L ALT (7-52) Units/L Alkaline Phosphatase (34-104) Units/L Troponin I (< 0.04) ng/mL B-Natriuretic Peptide (Less than 100) pg/mL Serum Total Protein (6.4-8.9) g/dL Albumin (3.5-5.7) g/dL Globulin (2.4-3.5) g/dL Albumin/Globulin Ratio (1.1-2.2) Urine Color Yellow (Yellow) Urine Clarity Cloudy A (Clear) Urine pH 8.5 H (5.0-8.0) pH Units Ur Specific Raven 1.015 (1.010-1.025) Urine Protein 100 H (Neg-Trace) mg/dL Urine Glucose (UA) Normal (Normal) mg/dL Urine Ketones Negative (Negative) mg/dL Urine Blood Large H (Negative) Urine Nitrite Positive A (Negative) Urine Bilirubin Negative (Negative) Urine Urobilinogen Normal (Normal) mg/dL Ur Leukocyte Esterase Large H (Negative) Urine Microscopic RBC 0-3 (0-3) per hpf Urine Microscopic WBC 15-30 H (0-3) per hpf Ur Squamous Epith Cells Few (None-Few) per lpf Urine Bacteria Many H (None-Few) per hpf Ur Culture Indicated? YES A (NO) Attestation Statement - Attestation Attestation: I was present with the resident during the history and exam. I discussed the case with the resident and agree with the findings and plan as documented in the residents note. Resident Conner Estrada Patient presents today with family for evaluation of [place] catheter problem. Pulled out yesterday and catheter exchange. Unable to be replaced. Patient has had general weakness and progressive shortness of breath. Patient has significant elevated white blood cell count with left shift as well as an elevated creatinine and troponin. Urinalysis concerning for UTI. Patient does have a history of C. difficile and has had one episode of diarrhea. The CT abdomen and pelvis was performed to rule out toxic megacolon as well as intra- abdominal process correlating to white count. This has not been seen. C. difficile testing is pending. Antibiotics have been given in regards to vancomycin and ceftriaxone. I have discussed the hospitalist and we will hold off on heparin at this time. Patient has been accepted for admission. Patient in no acute distress. Abdomen soft mild suprapubic tenderness. [place] bag had initial drainage of blood-tinged urine that cleared after several minutes
--- NOTE | 2018-06-27 10:05 | Emergency Department Note ---
Disposition Clinical Impression: Elevated troponin, Elevated INR, Elevated brain natriuretic peptide (BNP) level Sepsis Qualifiers: Sepsis type: sepsis due to unspecified organism Qualified Code(s): A41.9 - Sepsis, unspecified organism Urinary tract infection Qualifiers: Urinary tract infection type: acute cystitis Hematuria presence: with hematuria Qualified Code(s): N30.01 - Acute cystitis with hematuria Diarrhea Qualifiers: Diarrhea type: unspecified type Qualified Code(s): R19.7 - Diarrhea, unspecified Disposition: Admitted As Inpatient Referrals: Harjeet Chilel MD [Primary Care Provider] - Forms: ED Satisfaction Letter General Adult HPI - General Chief complaint: ED Weakness Stated complaint: Needs cath changed/cough/weakness Time Seen by Provider: 06/27/18 09:35 Source: patient Mode of arrival: ambulatory Limitations: no limitations Nursing Notes Reviewed: Yes Vital Signs Reviewed: Yes - History of Present Illness HPI Narrative: Patient is an 82-year-old male with past medical history including hypertension , CHF, BPH and prostate cancer with [place] catheterization, presents with a chief complaint of unable to place [place] catheter and weakness. Patient complains of generalized weakness and intermittent progressively worsening shortness of breath with exertion for the past 2-3 days. Today he became significantly short of breath when walking from the bed to the bathroom which is unusual for him per family. He also complains of nausea and was dry heaving per family. Patient denies any chest pain, cough, fevers or chills. halfway also replaces the patient's [place] catheter once a month. Yesterday evening the [place] catheter was removed and they were unable to place a new one in. Patient was able to urinate this morning with blood noted in the urine. Again the mcc was unable to place the catheter this morning and advise family to take the patient to the ER. Patient is not on any anticoagulants, denies paresthesias, diarrhea, painful urination, abdominal pain. Pain Scale: 0 - Related Data Home Medications Medication Instructions Recorded Confirmed Balsam [place] Oil [Venelex 60 gm TP BID 06/27/18 06/27/18 Ointment] Cholecalciferol (D-3) [Vitamin D] 5,000 unit PO DAILY 06/27/18 06/27/18 Ferrous Sulfate [Iron] 325 mg PO BID 06/27/18 06/27/18 Furosemide [Lasix] 40 mg PO DAILY 06/27/18 06/27/18 Hydralazine HCl 50 mg PO TID 06/27/18 06/27/18 Melatonin/Pyridoxine HCl (B6) 2 tab PO HS PRN 06/27/18 06/27/18 [Melatonin 3 mg Tablet] Potassium Chloride 20 meq PO DAILY 06/27/18 06/27/18 Allergies Allergy/AdvReac Type Severity Reaction Status Date / Time No Known Drug Allergies Allergy Unknown none Verified 06/27/18 14:16 All systems ED: reviewed and negative except as stated. Review of Systems: As Per HPI Constitutional: Denies: fever, chills Eyes: Denies: vision change ENT ED: Denies: throat pain, congestion Cardiovascular: Reports: dyspnea on exertion. Denies: chest pain, palpitations Respiratory: Reports: dyspnea. Denies: cough, wheezes, hemoptysis Gastrointestinal: Reports: nausea. Denies: abdominal pain, vomiting, diarrhea Genitourinary: Reports: hematuria. Denies: dysuria Musculoskeletal: Denies: back pain, neck pain Integumentary: Denies: rash Neurological: Reports: weakness. Denies: headache Allergic/Immunologic: Denies: itchy eyes Past Medical History - Past Medical History Attestation: Yes The following information was validated with the patient. Source: patient, old records reviewed, obtained from family Medical history: Reports: cancer, CHF, hypertension, renal disease Psychiatric history: Reports: no psych history - Social History Smoking Status: Former smoker Smokeless Tobacco Status: No Alcohol use: Reports: none Drug use: Reports: none Physical Exam - General Limitations: no limitations General appearance: alert, in no apparent distress - Head Head exam: atraumatic, normocephalic - Eye Eye exam: Present: normal appearance, EOMI - ENT ENT exam: mucous membranes dry, other (hard of hearing) - Neck Neck exam: Present: full ROM, trachea midline - Respiratory Respiratory exam: Present: normal lung sounds bilaterally, other (No crackles). Absent: wheezes, accessory muscle use - Cardiovascular Cardiovascular exam: Present: regular rate, normal rhythm, normal heart sounds, other (bilateral radial pulses equal) - Abdominal Exam Abdominal exam: Present: soft, Non-Tender, other (umbilical hernia, does not appear to be strangulated or incarcerated. Reducible.). Absent: distention, guarding - Extremities Exam Extremities exam: Absent: pedal edema - Neurological Exam Neurological exam: Present: alert, oriented X3, CN II-XII intact - Expanded Neurological Exam Motor strength - LUE: 5/5 Motor strength - RUE: 5/5 Motor strength - LLE: 5/5 Motor strength - RLE: 5/5 Sensory exam upper extremity: light touch: Normal Sensory exam lower extremity: light touch: Normal - Psychiatric Psychiatric exam: Present: normal affect, normal mood - Skin Skin exam: Present: warm, dry. Absent: cyanosis, diaphoresis, pallor Course Vital Signs Temperature 98.6 F 06/27/18 09:32 Pulse Rate 94 06/27/18 09:32 Respiratory Rate 18 06/27/18 09:32 Blood Pressure 134/73 06/27/18 09:32 O2 Sat by Pulse Oximetry 99 06/27/18 09:32 Temperature 98.6 F 06/27/18 09:38 Pulse Rate 94 06/27/18 09:38 Respiratory Rate 18 06/27/18 09:38 Blood Pressure 134/73 06/27/18 09:38 O2 Sat by Pulse Oximetry 99 06/27/18 09:38 Oxygen Delivery Oxygen Delivery Room Air Medical Decision Making - [facility] Narrative Medical decision making narrative: Patient presented with generalized weakness, shortness of breath, hematuria. We will evaluate for source of infection, cardiac workup, evaluate for anemia or electrolyte abnormalities for a cause of his weakness. Check CBC, BMP, troponin, BNP, chest x-ray, urinalysis. Will have the patient attempt to urinate on his own. If he is unable to, will ultrasound his bladder to evaluate how much he is retaining. He will then need a 3 way catheter placed if he is unable to urinate. 10:30 Point of care ED bedside ultrasound performed by Dr. Guidry. There is bilateral hydronephrosis and an umbilical hernia. There is also about 1L of fluid in his bladder. Added on a hepatic panel and PT INR to evaluate for cirrhosis. Will insert a 3 way catheter. Chest xray with no acute process. 12:00 Labs reviewed. Creatinine is worsened to 3.36. Last creatinine in November was 1.49. He had evidence of hydronephrosis and retaining urine. This is the likely cause of the worsening renal function. Troponin 0.99. He has had elevated troponin in the past, 0.69 in November 2017. BNP also elevated at 725. It was 1034 in November. INR 2.4. There is some flattening of the t waves on his ekg, but no st elevation or depression. Patient also meets SIRS criteria and will send blood cultures and lactic acid. Start IV fluids. Patient still needs a catheter placement to relieve the retention and send urinalysis to evaluate for infection. In November 2017 he had sepsis secondary to urinary tract infection. Family, the patient did have an episode of watery diarrhea prior to coming to the ED. He has had C. difficile in the past. We will evaluate for this as well. Patient also has an umbilical hernia. He does not have any abdominal pain. We will check CT of his abdomen and pelvis. A coude catheter was placed instead of a 3 way catheter. 13:10 Urinalysis with positive nitrites and large leukocyte esterase. Culture will be sent. There is no prior urine culture results and micro. Lactic acid and blood cultures still have not been drawn yet. 13:[address] abdomen to rule out toxic megacolon prior to initiating antibiotics. Patient still needs his blood cultures drawn prior to starting antibiotics as well. 14:00 CT with cystitis and no evidence of colonic or other acute abdominal abnormalities. Will give oral vancomycin for possible c.diff. and give Rocephin for his urinary tract infection. 14:14 Discussed with hospitalist, who will accept the patient. Will give aspirin and will not initiate heparin secondary to the elevated troponin. Patient and family aware. All questions answered and patient and family agreeable to plan. - Medical Records Medical records reviewed: Yes I reviewed the patient's medical records. - Lab Data Result diagrams: 06/27/18 11:09 06/27/18 11:09 Lab Results 06/27/18 06/27/18 06/27/18 Range/Units 11:09 11:09 11:09 WBC 36.4 H* (4.3-11.1) K/mcL RBC 4.17 L (4.19-5.50) M/mcL Hgb 12.4 L (12.9-16.9) g/dL Hct 35.2 L (37.5-50.1) % MCV 84.4 (83.0-100.0) fL MCH 29.7 (28.0-33.3) pg MCHC 35.2 (31.6-35.5) g/dL RDW 13.9 (11.5-14.5) % Plt Count 209 (140-400) K/mcL MPV 10.7 (9.4-12.4) fL Seg Neutrophils % 73.0 % Band Neutrophils % 17.0 H (0-4) % Lymphocytes % 7.0 % Monocytes % 3.0 % Neutrophils # 32.8 H (1.6-8.9) K/mcL Lymphocytes # 2.6 (0.6-4.6) K/mcL Monocytes # 1.1 (0.0-1.3) K/mcL Platelet Estimate Normal (Normal) PT (9.4-12.1) Seconds INR Sodium 136 (136-145) mEq/L Potassium 3.9 (3.5-5.1) mEq/L Chloride 107 (98-107) mEq/L Carbon Dioxide 17 L (23-29) mEq/L BUN 71 H (8-23) mg/dL Creatinine 3.36 H (0.70-1.30) mg/dL Est GFR ( Amer) 21 L (> 60) Est GFR (Non-Af Amer) 18 L (> 60) BUN/Creatinine Ratio 21 (6-26) Glucose 134 H (70-105) mg/dL Calculated Osmolality 305 H (280-300) Calcium 9.3 (8.6-10.3) mg/dL Total Bilirubin 0.8 (0.3-1.0) mg/dL Direct Bilirubin 0.2 (0.0-0.2) mg/dL Indirect Bilirubin 0.6 (0.0-1.2) mg/dL AST 30 (13-39) Units/L ALT 23 (7-52) Units/L Alkaline Phosphatase 93 (34-104) Units/L Troponin I 0.99 H* (< 0.04) ng/mL B-Natriuretic Peptide 725 H (Less than 100) pg/mL Serum Total Protein 7.1 (6.4-8.9) g/dL Albumin 3.5 (3.5-5.7) g/dL Globulin 3.6 H (2.4-3.5) g/dL Albumin/Globulin Ratio 1.0 L (1.1-2.2) 09/16/18 Range/Units 11:09 WBC (4.3-11.1) K/mcL RBC (4.19-5.50) M/mcL Hgb (12.9-16.9) g/dL Hct (37.5-50.1) % MCV (83.0-100.0) fL MCH (28.0-33.3) pg MCHC (31.6-35.5) g/dL RDW (11.5-14.5) % Plt Count (140-400) K/mcL MPV (9.4-12.4) fL Seg Neutrophils % % Band Neutrophils % (0-4) % Lymphocytes % % Monocytes % % Neutrophils # (1.6-8.9) K/mcL Lymphocytes # (0.6-4.6) K/mcL Monocytes # (0.0-1.3) K/mcL Platelet Estimate (Normal) PT 26.6 H (9.4-12.1) Seconds INR 2.4 Sodium (136-145) mEq/L Potassium (3.5-5.1) mEq/L Chloride (98-107) mEq/L Carbon Dioxide (23-29) mEq/L BUN (8-23) mg/dL Creatinine (0.70-1.30) mg/dL Est GFR ( Amer) (> 60) Est GFR (Non-Af Amer) (> 60) BUN/Creatinine Ratio (6-26) Glucose (70-105) mg/dL Calculated Osmolality (280-300) Calcium (8.6-10.3) mg/dL Total Bilirubin (0.3-1.0) mg/dL Direct Bilirubin (0.0-0.2) mg/dL Indirect Bilirubin (0.0-1.2) mg/dL AST (13-39) Units/L ALT (7-52) Units/L Alkaline Phosphatase (34-104) Units/L Troponin I (< 0.04) ng/mL B-Natriuretic Peptide (Less than 100) pg/mL Serum Total Protein (6.4-8.9) g/dL Albumin (3.5-5.7) g/dL Globulin (2.4-3.5) g/dL Albumin/Globulin Ratio (1.1-2.2) - Radiology Data Radiology results reviewed: Yes I reviewed the patient's radiology results. Chest X-Ray 06/27/18 09:56 IMPRESSION: No acute process. D/ / 06/27/2018 10:37:08 Ramez Hassan MD / [place] Interpreting Provider: Ramez Hassan MD - EKG Data EKG #1 EKG attestation: Yes I reviewed and interpreted this EKG. EKG results narrative: EKG on 06/27/2018 she was in ectopic atrial rhythm with heart rate 93. [place] 152. QT 359. QTc 447. No ST elevation or depression. Some flattening of his T waves. No evidence of heart block. Compared to prior EKG on 11/20/2017 that showed SVT at that time.
[2018-06-27 11:26] LABS: Mean Corpuscular HGB Conc 35.2 g/dL (31.6-35.5)
[2018-06-27 11:28] LABS: Hematocrit 35.2 % (37.5-50.1); Hemoglobin 12.4 g/dL (12.9-16.9); Mean Corpuscular Hemoglobin 29.7 pg (28.0-33.3); Mean Corpuscular Volume 84.4 fL (83.0-100.0); Mean Platelet Volume 10.7 fL (9.4-12.4); Platelet Count 209 K/mcL (140-400); Red Blood Count 4.17 M/mcL (4.19-5.50); Red Cell Distribution Width 13.9 % (11.5-14.5)
[2018-06-27 11:33] LABS: INR 2.4; Prothrombin Time 26.6 Seconds (9.4-12.1)
[2018-06-27 11:53] LABS: Albumin 3.5 g/dL (3.5-5.7); Bilirubin,Direct 0.2 mg/dL (0.0-0.2); Bilirubin,Indirect 0.6 mg/dL (0.0-1.2); Bilirubin,Total 0.8 mg/dL (0.3-1.0); Calcium 9.3 mg/dL (8.6-10.3); Globulin 3.6 g/dL (2.4-3.5); Potassium 3.9 mEq/L (3.5-5.1); Total Protein 7.1 g/dL (6.4-8.9)
[2018-06-27 11:56] LABS: Lymphocytes # 2.6 K/mcL (0.6-4.6); Monocytes # 1.1 K/mcL (0.0-1.3); Neutrophils # 32.8 K/mcL (1.6-8.9); Platelet Estimate Normal (Normal)
[2018-06-27 11:57] LABS: Troponin I 0.99 ng/mL (< 0.04)
[2018-06-27] MEDS ORDERED: 0.9 % Sodium Chloride 1,000 ML IVC ONE (12:01)
[2018-06-27 12:48] LABS: Bilirubin,Urine Negative (Negative); Blood,Urine Large (Negative); Clarity,Urine Cloudy (Clear); Color,Urine Yellow (Yellow); Glucose,Urine (UA) Normal (Normal); Ketones,Urine Negative (Negative); Leukocyte Esterase,Urine Large (Negative); Nitrite,Urine Positive (Negative); PH,Urine 8.5 pH Units (5.0-8.0); Protein,Urine 100 mg/dL (Neg-Trace); Specific Gravity,Urine 1.015 (1.010-1.025); Urobilinogen,Urine Normal (Normal)
[2018-06-27 13:04] LABS: RBC,Urine 0-3 per hpf (0-3); WBC,Urine 15-30 per hpf (0-3)
[2018-06-27 13:06] LABS: Bacteria,Urine Many per hpf (None-Few); Squamous Epithelial Cell,Urine Few per lpf (None-Few)
[2018-06-27] MEDS ORDERED: cefTRIAXone 1,000 MG in Water for inj. (sterile) 20 ML 10 ML IVP ONE (13:56)
[2018-06-27] MEDS ORDERED: Aspirin 325 MG TABLET PO ONE (14:25)
[2018-06-27] MEDS ORDERED: 0.9 % Sodium Chloride 500 ML IVC ONE (14:25)
[2018-06-27] MEDS: Vancomycin Oral Soln 125 MG/2.5 ML UDC PO SCH ×3 (15:21→22:25)
[2018-06-27] MEDS ORDERED: PYRIDOXINE HCL PO PRN (15:34)
[2018-06-27] MEDS ORDERED: MELATONIN PO PRN (15:34)
[2018-06-27] MEDS ORDERED: 0.9 % Sodium Chloride 1,000 ML IVC SCH (15:45)
--- NOTE | 2018-06-27 15:59 | Internal Med History&Physical ---
Date of Encounter: 06/27/18 Time of Encounter: 15:48 Internal Medicine - H&P: HPI Chief complaint: Inability to replace au catheter; generalized weakness Admitted From: Long-term Nursing Facility Plans for Post Hospital Care: Transfer Shelter Facility History of present illness: Mr. Alejo is a 82 year old male with a past history of prostate cancer and chronic kidney disease and hypertension who presents to the emergency department with a chief complaint of generalized weakness and long term unable to pass Au catheter. Patient has a chronic Au catheter and receives monthly catheter replacements reportedly the long term removed catheter yesterday and was unable to replace it and bleeding occurred. They let him rest overnight and were unable to place at this morning then sent into the ER. Family states that they saw him 2 weeks ago when he was fine upon evaluation today he is very weak and quiet and not his usual self. Evaluation the emergency department the patient was found to have over a liter of urine in his bladder and Au catheter was inserted, hematuria was initially noted and thick white sediment is noted in the Au catheter tubing. Imaging revealed mild to moderate bilateral hydronephrosis and findings consistent with cystitis. Laboratory studies revealed significant leukocytosis of 36,000 with 17% bandemia; as well as a creatinine of 3.36 and a troponin of 0.99. Urinalysis is consistent with likely urinary tract infection. The patient also had watery diarrhea today and a history of clostridium difficile colitis earlier this year. The patient was started. Clear on IV Rocephin and empirically on oral vancomycin. The patient received 1500 mL of normal saline and blood cultures were obtained. EKG revealed sinus tachycardia with heart rate in the 90s and no significant ischemic changes other than mild T-wave flattening in lead 3. Patient did meet severe sepsis criteria on admission with tachycardia and leukocytosis with a suspected source and end organ dysfunction The patient was admitted for sepsis due to urinary tract infection in November of this year and was also noted to have elevated troponin at that time. Unfortunately culture results of the urine from that visit are not available. The family also reports hospitalization at [facility] in the intensive care unit after clostridium difficile colitis infection and possible urine infection since his last hospitalization at this facility. They state that his kidneys were very weak at that time and that he nearly required dialysis however they stated he recovered but they are unsure what his normal creatinine is. The patient currently denies any specific complaints he states that he has no pain denies any chest pain, shortness of breath, nausea, vomiting, diarrhea. The patient is afebrile. The patient to the family had some shortness of breath earlier today but they state that he seems like he is breathing fine now. He reports that he is normally oriented to place and sometimes year and sometimes name at baseline. Past Med Surg Social Fam HX - Past Medical History Medical history: cancer, CHF, hypertension, renal disease Additional medical history: prostate problems - self cath Psychiatric history: no psych history - Social History Smoking Status: Former smoker Smokeless Tobacco Status: No Alcohol use: none Drug use: none Internal Medicine - H&P: Meds Balsam [place] Oil [Venelex Ointment] 60 gm TP BID 06/27/18 [History] Cholecalciferol (D-3) [Vitamin D] 5,000 unit PO DAILY 06/27/18 [History] Ferrous Sulfate [Iron] 325 mg PO BID 06/27/18 [History] Furosemide [Lasix] 40 mg PO DAILY 06/27/18 [History] Hydralazine HCl 50 mg PO TID 06/27/18 [History] Melatonin/Pyridoxine HCl (B6) [Melatonin 3 mg Tablet] 2 tab PO HS PRN 06/27/18 [ History] Potassium Chloride 20 meq PO DAILY 06/27/18 [History] 3 Allergy/AdvReac Type Severity Reaction Status Date / Time No Known Drug Allergies Allergy Unknown none Verified 06/27/18 14:16 All Systems PM: A 10-system review of systems was performed and is negative for pertinent findings except as documented above in the HPI. Review of systems: 10 point review of systems is obtained and is otherwise negative other than described in history of present illness - Constitutional Vitals: Temp Pulse Resp BP Pulse Ox 98.6 F 84 21 127/60 99 06/27/18 09:38 06/27/18 15:25 06/27/18 15:25 06/27/18 15:25 06/27/18 15:25 Exam: Constitutional: No acute distress, Alert Psych: AAO x 1-2 (knows name and that he is in a hospital) HEENT: NCAT, EOMI Neck: supple, no JVD Cardio: RRR, tachycardia improving (87 now) +s1s2, no murmurs/rubs/gallops, no JVD Resp: clear to ascultation bilaterally, no wheezes/rales/ronchi Abd: soft, non tender/non distended, positive bowel sounds, no gaurding/reboud/ ridgitity; no flank tenderness : au in place with thick white sediment in tubing; urine currently yellow but red in bag Extremities: no clubbing/cyanosis/edema appreciated Neuro: no focal deficits appreciated Lymph: no cervical/supraclavicular adenopahty apprecitated Internal Med - H&P Results - Labs CBC & Chem 7: 06/27/18 11:09 06/27/18 11:09 - Assessment and plan (1) Severe sepsis Current Visit: Yes Status: Resolved Assessment and plan: Patient presented with severe sepsis due to tachycardia and leukocytosis with bandemia and suspected urinary source with renal and cardiac and organ damage -The patient had acute urinary retention with bladder outlet obstruction secondary to inability to place Au -He has urinary tract infection-like related to his chronic indwelling Au and urinary retention -Significant leukocytosis of 36K -Also with watery diarrhea with Clostridium difficile colitis infection history -Patient received IV fluids; continue normal saline -Blood and urine cultures obtained -Given 1 dose of IV Rocephin we will expand coverage with IV cefepime to cover Pseudomonas given lack of prior sensitivities and healthcare exposure -The patient was empirically started on oral vancomycin in the emergency department, I feel this is reasonable to continue until C. difficile PCR excludes C. difficile -Heart rate is improving with IV fluids (2) Acute on chronic renal failure Current Visit: Yes Status: Acute Assessment and plan: The patient with suspected acute renal failure with suspected chronic kidney disease stage III -Unsure of baseline serum creatinine is the patient has had hospitalization at [facility] that nearly required dialysis per family -suspect this is acute kidney injury due to acute urinary retention with bladder outlet obstruction secondary to inability to Place Au especially in light of hydronephrosis seen on imaging -Au catheter placed in ED with over 1 L of urine noted and bladder -Presented with hematuria this seems to be improving -Also with urinary tract infection and severe sepsis -Patient received 1.5 L of normal saline will continue IV fluids -We will follow renal function in a.m and evaluate for need for nephrology evaluation -I suspect renal function and hydronephrosis should improve now that the obstruction has been relieved; however the renal function not improve we will consider nephrology and/or urology evaluation tomorrow -If renal function does not improve we will proceed with appropriate acute kidney injury workup Qualifiers: Acute renal failure type: unspecified Chronic kidney disease stage: stage 3 (moderate) Qualified Code(s): N17.9 - Acute kidney failure, unspecified; N18.3 - Chronic kidney disease, stage 3 (moderate) (3) UTI (urinary tract infection) Current Visit: Yes Status: Acute Assessment and plan: -Patient with complicated catheter associated urinary tract infection -Likely secondary to urinary retention and chronic indwelling Au catheter -Given 1 dose of IV Rocephin, will expand IV cefepime for now -UA does not appear to be contaminated, we will follow culture -We will likely need at least 7-10 days abx Qualifiers: Urinary tract infection type: catheter-associated UTI Indwelling urinary catheter type: indwelling urethral catheter Encounter type: initial encounter Qualified Code(s): T83.511A - Infection and inflammatory reaction due to indwelling urethral catheter, initial encounter; N39.0 - Urinary tract infection , site not specified (4) Hydronephrosis Current Visit: Yes Status: Acute Assessment and plan: Mild to moderate hydronephrosis noted on imaging -This is most likely secondary to acute urinary retention with bladder obstruction -Obstruction relieved with Au placement -Suspect hydronephrosis should improve now that obstruction is relieved -If renal function does not improve in a.m. we will reimage to evaluate hydronephrosis and consider urology evaluation Qualifiers: Hydronephrosis type: other Qualified Code(s): N13.39 - Other hydronephrosis (5) Acute urinary retention Current Visit: Yes Status: Acute Assessment and plan: -see above (6) Bladder outlet obstruction Current Visit: Yes Status: Acute Assessment and plan: -see above (7) Diarrhea Current Visit: Yes Status: Acute Assessment and plan: -Patient with watery diarrhea this morning -Unsure if the patient has been having diarrhea he is a poor historian -With recent C. difficile infection and severe leukocytosis of 36.4K currently -Empiric oral vancomycin started in ED, will continue for now awaiting c.diff testing -send stool studies -continue IVF Qualifiers: Diarrhea type: presumed infectious Qualified Code(s): R19.7 - Diarrhea, unspecified (8) Metabolic acidosis Current Visit: Yes Status: Acute Assessment and plan: -patient with non-anion gap metabolic acidosis -likely secondary to diarrhea with renal dysfunction -follow bmp in am (9) Elevated troponin Current Visit: Yes Status: Acute Assessment and plan: -Troponin of 0.99 on admission -Appeared to have persistent elevation last admission between 0.5 and 0.7 -Possibly secondary to increased demand from sepsis -We will recheck echocardiogram -We will recheck troponin; if uptrending will consider heparin drip however the patient was having hematuria on arrival -EKG does not reveal any significant ischemic changes other than T-wave flattening in lead 3 -Patient with no chest pain and no recent history of chest pain (10) Coagulopathy Current Visit: Yes Status: Acute Assessment and plan: INR of 2.4 and PT of 26.6 -Unsure of etiology, does not appear to be on any anticoagulation -Normal LFTs -No evidence of hepatic disease on CT scan -Recheck PT and INR with PTT in a.m. -Platelets are normal (11) HTN (hypertension) Current Visit: Yes Status: Acute Assessment and plan: -Hold off on home blood pressure medication currently -will resume as needed Qualifiers: Hypertension type: essential hypertension Qualified Code(s): I10 - Essential (primary) hypertension (12) Dementia Current Visit: Yes Status: Acute Assessment and plan: -Reported history of alzhemiers dementia per history and family -Family aware of possible sundowning with new environment -We will monitor -has required sitter in past admission Qualifiers: Dementia type: Alzheimer's disease Alzheimer's disease onset: late-onset Dementia behavioral disturbance: with behavioral disturbance Qualified Code(s) : G30.1 - Alzheimer's disease with late onset; F02.81 - Dementia in other diseases classified elsewhere with behavioral disturbance (13) DVT prophylaxis Current Visit: Yes Status: Acute Assessment and plan: -sub q heparin, scds - Time Spent With Patient Total time spent is greater than 50% in coordination of care (as documented) at patient's floor/unit and/or counseling patient: Greater than 35 minutes
[2018-06-27] MEDS ORDERED: *HR* Heparin 5,000 UNIT/ML VIAL SQ SCH (16:00)
[2018-06-27] MEDS: *HR* Heparin 5,000 UNIT/ML VIAL SQ SCH (22:24)
[2018-06-28 04:33] LABS: C.difficile Toxin A/B by PCR See reflex test (Not detect); Campylobacter by PCR Not detected (Not detect)
[2018-06-28 04:34] LABS: Adenovirus F 40/41 PCR Not detected (Not detect); Astrovirus PCR Not detected (Not detect); Cryptosporidium by PCR Not detected (Not detect); Cyclospora cayetanensis PCR Not detected (Not detect); E. coli O157 by PCR Not detected (Not detect); Entamoeba histolytica PCR Not detected (Not detect); Enteroaggregative E.coli(EAEC) Not detected (Not detect); Enteropathogenic E.coli(EPEC) Not detected (Not detect); Enterotoxigenic E.coli (ETEC) Not detected (Not detect); Giardia lamblia PCR Not detected (Not detect); Norovirus GI/GII PCR Not detected (Not detect); Plesiomonas shigelloides PCR Not detected (Not detect); Rotavirus A PCR Not detected (Not detect); Salmonella PCR Not detected (Not detect); Sapovirus PCR Not detected (Not detect); Shig/EnteroinvasiveE coli EIEC Not detected (Not detect); Shigalike tox-prod E coli STEC Not detected (Not detect); Vibrio PCR Not detected (Not detect); Vibrio cholerae PCR Not detected (Not detect); Yersinia enterocolitica PCR Not detected (Not detect)
[2018-06-28 05:20] LABS: Acinetobacter baumannii by PCR Not Detected (Not Detect); Enterobacteriaceae by PCR DETECTED (Not Detect); Enterococcus by PCR Not Detected (Not Detect); Staphylococcus aureus by PCR DETECTED (Not Detect); Streptococcus agalactiae(B)PCR Not Detected (Not Detect); Streptococcus by PCR Not Detected (Not Detect); Streptococcus pneumoniae PCR Not Detected (Not Detect); Streptococcus pyogenes (A) PCR Not Detected (Not Detect); blaKPC Carbapenem-Resist Gene Not Detected (Not Detect); mecA Methicillin-Resist Gene DETECTED (Not Detect); vanA/B Vancomycin-Resist Genes Not Detected (Not Detect)
[2018-06-28 05:21] LABS: Candida albicans by PCR Not Detected (Not Detect); Candida glabrata by PCR Not Detected (Not Detect); Candida krusei by PCR Not Detected (Not Detect); Candida parapsilosis by PCR Not Detected (Not Detect); Candida tropicalis by PCR Not Detected (Not Detect); Enterobacter cloacae Cmplx PCR Not Detected (Not Detect); Escherichia coli by PCR Not Detected (Not Detect); Klebsiella oxytoca by PCR Not Detected (Not Detect); Klebsiella pneumoniae by PCR Not Detected (Not Detect); Pseudomonas aeruginosa by PCR Not Detected (Not Detect); Serratia marcescens by PCR Not Detected (Not Detect)
[2018-06-28 05:22] LABS: Staphylococcus by PCR DETECTED (Not Detect)
[2018-06-28] MEDS: *HR* Heparin 5,000 UNIT/ML VIAL SQ SCH ×3 (06:33→21:03)
[2018-06-28 07:13] LABS: Hematocrit 30.3 % (37.5-50.1); Mean Corpuscular HGB Conc 34.7 g/dL (31.6-35.5); Mean Corpuscular Hemoglobin 28.8 pg (28.0-33.3); Mean Platelet Volume 10.6 fL (9.4-12.4); Platelet Count 148 K/mcL (140-400); Red Blood Count 3.65 M/mcL (4.19-5.50)
[2018-06-28 07:14] LABS: Hemoglobin 10.5 g/dL (12.9-16.9)
[2018-06-28 07:17] LABS: INR 1.5; Prothrombin Time 17.2 Seconds (9.4-12.1)
[2018-06-28 07:20] LABS: Activated Partial Thrombo Time 58.1 Seconds (26.0-36.0)
[2018-06-28 07:33] LABS: Calcium 8.3 mg/dL (8.6-10.3); Magnesium 1.8 mg/dL (1.6-2.6); Phosphorous 2.6 mg/dL (2.7-4.5); Potassium 3.5 mEq/L (3.5-5.1)
[2018-06-28] MEDS ORDERED: Acetaminophen 325 MG TABLET PO PRN (07:36)
[2018-06-28] MEDS: Cefepime HCl 1,000 MG in Water for inj. (sterile) 20 ML 10 ML IVP SCH (08:19)
[2018-06-28] MEDS: hydrALAZINE 25 MG TABLET PO SCH ×3 (08:19→21:03)
[2018-06-28] MEDS: Vancomycin Oral Soln 125 MG/2.5 ML UDC PO SCH ×4 (08:20→21:03)
--- NOTE | 2018-06-28 08:31 | Internal Med Progress Note ---
Hospitalist Progress Note - Encounter Date of Encounter: 06/28/18 Time of Encounter: 08:27 - Subjective Interval History: Patient seen and examined at bedside. Patient in no acute overnight events. Patient continues to have liquid bowel movements. Patient continues to have adequate urine output. Patient states that he has no complaints. Patient denies any chest pain, shortness breath, nausea. Patient is febrile this morning. - Exam Vitals: Temp Pulse Resp BP Pulse Ox 100.4 F H 74 16 171/77 96 06/28/18 07:29 06/28/18 07:29 06/28/18 07:29 06/28/18 07:29 06/28/18 07:29 Exam: Constitutional: No acute distress, Alert Psych: AAO x 1(knows name) HEENT: NCAT, EOMI Neck: supple, no JVD Cardio: RRR, +s1s2, no murmurs/rubs/gallops, no JVD Resp: clear to ascultation bilaterally, no wheezes/rales/ronchi Abd: soft, non tender/non distended, hyperactive bowel sounds, no gaurding/ reboud/ridgitity; no flank tenderness : au in place with less white sediment in tubing; urine draining yellow Extremities: no clubbing/cyanosis/edema appreciated Neuro: no focal deficits appreciated - Assessment and Plan (1) Severe sepsis Current Visit: Yes Status: Resolved Assessment and Plan: Patient presented with severe sepsis due to tachycardia and leukocytosis with bandemia and suspected urinary source with renal and cardiac and organ damage -The patient had acute urinary retention with bladder outlet obstruction secondary to inability to place Au -He has urinary tract infection-like related to his chronic indwelling Au and urinary retention -Significant leukocytosis of 36K improving to 15K today -Also with watery diarrhea with Clostridium difficile colitis infection history ; cdiff positive -continue normal saline -Blood cx with gram positive cocci and gram negative rods; pcr with Enterobacter , MRSA -urine cx pending -Given 1 dose of IV Rocephin, continue cefepime and add IV vanco -continue oral vanco -ID consulted (2) Acute on chronic renal failure Current Visit: Yes Status: Acute Assessment and Plan: The patient with suspected acute renal failure with suspected chronic kidney disease stage III -Unsure of baseline serum creatinine is the patient has had hospitalization at [facility] that nearly required dialysis per family -suspect this is acute kidney injury due to acute urinary retention with bladder outlet obstruction secondary to inability to Place Au especially in light of hydronephrosis seen on imaging -Au catheter placed in ED with over 1 L of urine noted and bladder -Presented with hematuria this seems to be improving -Also with urinary tract infection and severe sepsis -Serum Creatinine improving from 3.36 o 2.44 today; urine output adequate -Patient received 1.5 L of normal saline will continue IV fluids -Due to improvement and treatment of obstruction; do not feel nephro/urology eval is needed currently -Will consider re-imaging to ensure resolution of hydronephrosis in a few days as long as renal function continues to improve (3) UTI (urinary tract infection) Current Visit: Yes Status: Acute Assessment and Plan: -Patient with complicated catheter associated urinary tract infection -Likely secondary to urinary retention and chronic indwelling Au catheter -Given 1 dose of IV Rocephin, Will continue cefepime for now -UA does not appear to be contaminated, we will follow culture -ID consulted for recs -Blood cultures with gram positive cocci and gram negative rods -Urine PH high -We will likely need at least 7-10 days abx (4) Hydronephrosis Current Visit: Yes Status: Acute Assessment and Plan: Mild to moderate hydronephrosis noted on imaging -This is most likely secondary to acute urinary retention with bladder obstruction -Obstruction relieved with Au placement -Suspect hydronephrosis should improve now that obstruction is relieved -renal function improving -will consider re-imaging in a few days to ensure resolution of hydronephrosis as long as renal function continues to improve (5) Acute urinary retention Current Visit: Yes Status: Acute Assessment and Plan: -see above (6) Bladder outlet obstruction Current Visit: Yes Status: Acute Assessment and Plan: -see above (7) Diarrhea Current Visit: Yes Status: Acute Assessment and Plan: -Patient with continued watery diarrhea per notes -Unsure if the patient has been having diarrhea he is a poor historian -With recent C. difficile infection and severe leukocytosis of 36.4K on admission, improved to 15K today -Empiric oral vancomycin started in ED, will continue -Cdiff positive -stool studies pending -continue IVF (8) Metabolic acidosis Current Visit: Yes Status: Acute Assessment and Plan: -patient with non-anion gap metabolic acidosis -bicarb stable -likely secondary to diarrhea with renal dysfunction -follow bmp in am (9) Elevated troponin Current Visit: Yes Status: Acute Assessment and Plan: -Troponin of 0.99 on admission -Appeared to have persistent elevation last admission between 0.5 and 0.7 -Possibly secondary to increased demand from sepsis -We will recheck echocardiogram -EKG does not reveal any significant ischemic changes other than T-wave flattening in lead 3 -Patient with no chest pain and no recent history of chest pain -Troponin decreased to 0.88; will stop trending -No heparin gtt for now due to hematuria on admission and coagulpathy (10) Coagulopathy Current Visit: Yes Status: Acute Assessment and Plan: INR of 2.4 and PT of 26.6 on admission -Unsure of etiology, does not appear to be on any anticoagulation -improved today -Normal LFTs -No evidence of hepatic disease on CT scan -Recheck PT and INR with PTT in a.m. -Platelets are normal but dropping; at 148 today; will follow platelets and coags; suspect due to sepsis (11) HTN (hypertension) Current Visit: Yes Status: Acute Assessment and Plan: -resume hydralazine -BP elevated -titrate as needed (12) Dementia Current Visit: Yes Status: Acute Assessment and Plan: -Reported history of alzhemiers dementia per history and family -Family aware of possible sundowning with new environment -We will monitor -has required sitter in past admission (13) DVT prophylaxis Current Visit: Yes Status: Acute Assessment and Plan: -sub q heparin, scds DVT Prophylaxis: hep sq, scds - Time Spent with Patient Total time spent is greater than 50% in coordination of care (as documented) at patient's floor/unit and/or counseling patient: 25 - 35 minutes Plan of Care Discussed with: patient Internal Medicine: Result - Labs CBC & Chem 7: 06/28/18 06:38 06/28/18 06:38 Labs: Short CBC 06/28/18 Range/Units 06:38 WBC 15.0 H D (4.3-11.1) K/mcL Hgb 10.5 L D (12.9-16.9) g/dL Hct 30.3 L (37.5-50.1) % Plt Count 148 (140-400) K/mcL BMP 06/28/18 06:38 Sodium 138 Potassium 3.5 Chloride 113 H Carbon Dioxide 18 L BUN 62 H Creatinine 2.44 H Glucose 98 Calcium 8.3 L Cardiac Enzymes 06/27/18 Range/Units 17:25 Troponin I 0.88 H* (< 0.04) ng/mL - ABG Interpretation ABG results: PT/INR, D-dimer PT 17.2 Seconds (9.4-12.1) H 06/28/18 06:38 Consult Discharge Plan - Plan Referrals: Harjeet Chilel MD [Primary Care Provider] - (2) Acute on chronic renal failure Qualifiers: Acute renal failure type: unspecified Chronic kidney disease stage: stage 3 ( moderate) Qualified Code(s): N17.9 - Acute kidney failure, unspecified; N18.3 - Chronic kidney disease, stage 3 (moderate) (3) UTI (urinary tract infection) Qualifiers: Urinary tract infection type: catheter-associated UTI Indwelling urinary catheter type: indwelling urethral catheter Encounter type: initial encounter Qualified Code(s): T83.511A - Infection and inflammatory reaction due to indwelling urethral catheter, initial encounter; N39.0 - Urinary tract infection , site not specified (4) Hydronephrosis Qualifiers: Hydronephrosis type: other Qualified Code(s): N13.39 - Other hydronephrosis (7) Diarrhea Qualifiers: Diarrhea type: presumed infectious Qualified Code(s): R19.7 - Diarrhea, unspecified (11) HTN (hypertension) Qualifiers: Hypertension type: essential hypertension Qualified Code(s): I10 - Essential (primary) hypertension (12) Dementia Qualifiers: Dementia type: Alzheimer's disease Alzheimer's disease onset: late-onset Dementia behavioral disturbance: with behavioral disturbance Qualified Code(s) : G30.1 - Alzheimer's disease with late onset; F02.81 - Dementia in other diseases classified elsewhere with behavioral disturbance
[2018-06-28 09:51] LABS: Eosinophils # 0.3 K/mcL (0.0-0.6); Lymphocytes # 1.5 K/mcL (0.6-4.6); Monocytes # 0.9 K/mcL (0.0-1.3); Neutrophils # 12.3 K/mcL (1.6-8.9); Toxic Vacuolation Present (Not Present)
[2018-06-28 09:52] LABS: Platelet Estimate Normal (Normal)
[2018-06-28 10:55] LABS: Proteus by PCR DETECTED (Not Detect)
[2018-06-28] MEDS ORDERED: Perflutren Lipid Microsphere 1.3 ML in 0.9 % Sodium Chloride 8.7 ML IVP ONE (12:01)
[2018-06-28] MEDS ORDERED: Perflutren Lipid Microsphere 2 ML VIAL ONE (12:04)
--- NOTE | 2018-06-28 12:37 | Infectious Disease Consult ---
Date of Encounter: 06/28/18 Time of Encounter: 12:37 Assessment and Plan (1) Severe sepsis Status: Resolved Assessment and plan: Patient had SIRS criteria and and organ damage Secondary to UTI with bacteremia and MRSA bacteremia and C. difficile colitis (2) MRSA bacteremia Status: Acute Assessment and plan: Source not clear. 2 out of 2 sets positive Patient does not have any central lines or open wounds. No endocarditis stigmata on physical exam No heart murmur appreciated Continue vancomycin IV with local vancomycin trough 15-20 Patient will need a GREGORIO prior to discharge Duration of treatment depends on the GREGORIO findings Monitor labs and for drug toxicity (3) Bacteremia due to Gram-negative bacteria Status: Acute Assessment and plan: Causative organism is Proteus mirabilis susceptibility pending Likely source is the urine Patient currently is on cefepime Continue cefepime for now and we will dose adjust antibiotics depending on susceptibility results Dose adjust antibiotics based on the creatinine clearance We will ask pharmacy to help with that Duration of treatment likely 14 days (4) C. difficile colitis Status: Acute Assessment and plan: No history of previous C. difficile before. By definition this is severe disease since WBCs over 15,000 and creatinine over 1.5. I think it is fulminant at this point Agree with the oral vancomycin but will decrease the dosing 225 mg by mouth every 4 hours. Duration of treatment probably 14 days or maybe even longer since patient continues to be on other antibiotics which will not make things much easier. (5) Acute on chronic renal failure Status: Acute Qualifiers: Acute renal failure type: unspecified Chronic kidney disease stage: stage 3 (moderate) Qualified Code(s): N17.9 - Acute kidney failure, unspecified; N18.3 - Chronic kidney disease, stage 3 (moderate) (6) Elevated troponin Status: Acute (7) Urinary tract infection Status: Acute Assessment and plan: Causative organism gram-negative teresa Await cultures finalize Qualifiers: Urinary tract infection type: acute cystitis Hematuria presence: with hematuria Qualified Code(s): N30.01 - Acute cystitis with hematuria (8) Dementia Status: Suspected Qualifiers: Dementia type: unspecified type Dementia behavioral disturbance: with behavioral disturbance Qualified Code(s): 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 Infectious Disease HPI - Data of Consult Patient: new to practice Consult date: 06/28/18 Requesting Physician: Zhou Grullon DO Primary Care Provider: Harjeet Chilel MD - Consult Narrative Reason for consult: severe sepsis History of present illness: Mr. Alejo is a 82 year old male Patient is an 82-year-old gentleman who presented to [facility] yesterday secondary to inability to replace [place] catheter and generalized weakness. We are consulted today for sepsis and bacteremia with MRSA and a gram-negative teresa likely Proteus. Patient is a 82-year-old gentleman with history of prostate cancer with chronic kidney disease hypertension presents to the emergency department complaining of generalized weakness at the [facility] apparently they were unable to pass a [place] catheter. Patient does have a chronic [place] catheter or sees monthly gets replacement. Patient came in to the emergency department for evaluation. Most of the information was taken from medical history: Only the patient is a good historian. Since admission, patient has been febrile with a MAXIMUM TEMPERATURE of 100.4 Fahrenheit, patient was also tachycardic and tachypneic at times. Presenting WBC was 36.4 thousand with 17% bands. UA and was 71 creatinine 3.36. Patient also had troponin leak with a troponin of 0.88 and a BNP of 725. Lactic acid was within normal limits at 1.6. A urinalysis was obtained and patient also had a stool PCR which was positive for C. difficile. Blood cultures 2 were obtained and there were positive for a gram-positive cocci no gram-negative teresa 2 out of 2 sets. Gram-positive cocci was picked up in the PCR as MRSA and the gram-negative teresa appears to be Proteus. A chest x-ray was obtained and showed no acute process. CT abdomen and pelvis reveals thick-walled urinary bladder with adjacent stranding consistent with cystitis. Mild rectal wall thickening consistent with prostatitis. Mild to moderate bilateral [place] ureter nephrosis and a moderate-sized umbilical hernia containing a loop of small bowel no associated obstruction. Patient is on cefepime and vancomycin oral vancomycin. We are asked to evaluate the patient and make further recommendations. On further questioning patient tells me has no diarrhea but is documented that he had soft watery stool during the night. Patient has good appetite he ate his breakfast. Otherwise he feels comfortable no acute distress. CC: Zhou Grullon DO Past Med Surg Social Fam HX - Past Medical History Medical history: cancer, CHF, hypertension, renal disease Additional medical history: prostate problems - self cath Psychiatric history: no psych history - Social History Smoking Status: Former smoker Smokeless Tobacco Status: No Alcohol use: none Drug use: none Infectious Disease-CN:Meds Balsam Izabela/[place] Oil [Venelex Ointment] 60 gm TP BID 06/27/18 [History] Cholecalciferol (D-3) [Vitamin D] 5,000 unit PO DAILY 06/27/18 [History] Ferrous Sulfate [Iron] 325 mg PO BID 06/27/18 [History] Furosemide [Lasix] 40 mg PO DAILY 06/27/18 [History] Hydralazine HCl 50 mg PO TID 06/27/18 [History] Melatonin/Pyridoxine HCl (B6) [Melatonin 3 mg Tablet] 2 tab PO HS PRN 06/27/18 [ History] Potassium Chloride 20 meq PO DAILY 06/27/18 [History] 3 Allergy/AdvReac Type Severity Reaction Status Date / Time No Known Drug Allergies Allergy Unknown none Verified 06/27/18 14:16 Review of systems: 10 point review of systems done, pertinent positives and negatives are in the history of present illness. Exam - Constitutional Vitals: Temp Pulse Resp BP Pulse Ox 99.4 F 73 16 114/58 95 06/28/18 11:16 06/28/18 11:16 06/28/18 11:16 06/28/18 11:16 06/28/18 11:16 General appearance: cooperative, no acute distress, no febrile - Head Head exam: Present: atraumatic, normocephalic - Eye Eye exam: Present: EOMI, PERRL, sclera anicteric - ENT ENT exam: Present: mucous membranes dry Additional comments: No oral lesions - Neck Neck exam: Present: full ROM. Absent: meningismus - Respiratory Additional comments: Chest expanding symmetrically. Her sounds audible both lung ross. No wheezing but some diffuse rhonchi at the bases. Poor inspiratory effort. - Cardiovascular Cardiovascular exam: Present: RRR, +S1, +S2 - GI/Abdominal GI/Abdominal exam: Present: normal bowel sounds, soft. Absent: firm, guarding, tenderness - Extremities Exam Extremities exam: Present: normal inspection. Absent: joint swelling, pedal edema - Neurological Exam Neurological exam: Present: alert, oriented X3. Absent: speech deficit - Psychiatric Psychiatric exam: Present: normal affect, normal mood - Skin Skin exam: Present: normal color. Absent: rash Infectious Disease CN: Results - Labs CBC & Chem 7: 06/29/18 04:09 06/29/18 04:09 Serology: Serology 06/27/18 06/27/18 Range/Units 23:45 23:45 Stl C. cayetanensis PCR Not detected (Not detect) Stool Rotavirus A PCR Not detected (Not detect) Stl Adenov F 40/41 PCR Not detected (Not detect) Stool Astrovirus (PCR) Not detected (Not detect) Stool Campylobacter PCR Not detected (Not detect) Stl C. diff Tox B Gene Positive A (Negative) Stl C. diff Tox A/B PCR See reflex test A (Not detect) Stool Cryptosporidium PCR Not detected (Not detect) Stl Sh Tox Pr E STEC PCR Not detected (Not detect) Stool E coli O157 PCR Not detected (Not detect) Stl Enterotoxigenic E PCR Not detected (Not detect) Stool EPEC (PCR) Not detected (Not detect) Stool EAEC (PCR) Not detected (Not detect) Stl E. histolytica PCR Not detected (Not detect) Stool Giardia Lamblia PCR Not detected (Not detect) Stool Salmonella PCR Not detected (Not detect) Stool Sapovirus (PCR) Not detected (Not detect) Stl P. shigelloides PCR Not detected (Not detect) Stl Shigella/EIEC PCR Not detected (Not detect) St Y.enterocolitica PCR Not detected (Not detect) Stool Vibrio (PCR) Not detected (Not detect) Stl Vibrio cholerae PCR Not detected (Not detect) Stl Norovirus GI/GII PCR Not detected (Not detect) Stl GI Panel (PCR) Com See below Consult Discharge Plan - Plan Referrals: Harjeet Chilel MD [Primary Care Provider] -
[2018-06-28] MEDS ORDERED: Melatonin 3 MG TABLET PO PRN (21:00)
[2018-06-29 04:33] LABS: Basophils % 0.4 %; Eosinophils # 0.3 K/mcL (0.0-0.6); Eosinophils % 3.1 %; Hematocrit 32.7 % (37.5-50.1); Immature Granulocytes % 0.6 % (0-4); Lymphocytes # 0.8 K/mcL (0.6-4.6); Lymphocytes % 8.2 %; Mean Corpuscular HGB Conc 33.6 g/dL (31.6-35.5); Mean Corpuscular Hemoglobin 28.7 pg (28.0-33.3); Mean Corpuscular Volume 85.4 fL (83.0-100.0); Mean Platelet Volume 10.9 fL (9.4-12.4); Monocytes # 0.6 K/mcL (0.0-1.3); Monocytes % 6.3 %; Neutrophils # 8.1 K/mcL (1.6-8.9); Platelet Count 132 K/mcL (140-400); Red Blood Count 3.83 M/mcL (4.19-5.50); Segmented Neutrophils % 81.4 %
[2018-06-29 04:44] LABS: INR 1.4; Prothrombin Time 15.7 Seconds (9.4-12.1)
[2018-06-29 04:47] LABS: Activated Partial Thrombo Time 58.9 Seconds (26.0-36.0)
[2018-06-29 04:51] LABS: Calcium 8.2 mg/dL (8.6-10.3); Phosphorous 2.6 mg/dL (2.7-4.5); Potassium 3.7 mEq/L (3.5-5.1)
[2018-06-29 04:55] LABS: Platelet Estimate Slight Decrease (Normal)
[2018-06-29] MEDS: *HR* Heparin 5,000 UNIT/ML VIAL SQ SCH ×2 (06:13→14:14)
[2018-06-29] MEDS: Vancomycin Oral Soln 125 MG/2.5 ML UDC PO SCH ×5 (07:42→21:01)
[2018-06-29] MEDS: hydrALAZINE 25 MG TABLET PO SCH ×3 (07:43→21:00)
[2018-06-29] MEDS: Cefepime HCl 1,000 MG in Water for inj. (sterile) 20 ML 10 ML IVP SCH (07:43)
--- NOTE | 2018-06-29 13:18 | Internal Med Progress Note ---
Hospitalist Progress Note - Encounter Date of Encounter: 06/29/18 Time of Encounter: 10:30 - Subjective Interval History: Patient is lying in bed. Comfortable. Denies any new complaints at this time. No abdominal pain reported. No chest pain or palpitations. Diarrhea appears to be improving. - Exam Vitals: Temp Pulse Resp BP Pulse Ox 98.5 F 60 18 141/66 96 06/29/18 11:02 06/29/18 11:02 06/29/18 11:02 06/29/18 11:02 06/29/18 11:02 Exam: General: Patient is alert, no acute distress, oriented x 2 Chest: normal inspection, symmetric chest rise Respiratory: Good respiratory effort. Normal breath sounds. No wheezing or crackles. Cardiovascular: Regular rate and rhythm. s1 and s2 normal. No clicks, rubs, gallops, or murmurs. No pedal edema Abdomen: Abdomen is soft, nontender. Bowel sounds are present Skin: warm, dry, intact. Psych: Patient's affect is normal - Assessment and Plan (1) Severe sepsis Current Visit: Yes Status: Acute Assessment and Plan: Continues to improve. WBC count at 10. Infectious diseases consultants following. Blood cultures positive for posture cocci and gram-negative rods. Her serology this is MRSA and Proteus species. Urine culture positive for Proteus which is resistant to cephalosporins. We will transition patient to ertapenem. Continue vancomycin. No clear source of MRSA bacteremia. High risk for complications. (2) Acute on chronic renal failure Current Visit: Yes Status: Acute Assessment and Plan: Continues to improve. Creatinine 1.97. We will continue to monitor closely. (3) UTI (urinary tract infection) Current Visit: Yes Status: Acute Assessment and Plan: With Proteus. Change antibiotic to ertapenem based on sensitivities. (4) Acute urinary retention Current Visit: Yes Status: Resolved (5) Hydronephrosis Current Visit: Yes Status: Acute Assessment and Plan: Likely related to bladder outlet obstruction and urinary retention. (6) Bladder outlet obstruction Current Visit: Yes Status: Resolved Assessment and Plan: [place] catheter in place. Patient having good urine output. (7) Diarrhea Current Visit: Yes Status: Acute Assessment and Plan: Stool positive for C. difficile. On oral vancomycin. (8) Elevated troponin Current Visit: Yes Status: Acute Assessment and Plan: Trended down. Presumed to be type II from demand ischemia and underlying sepsis. (9) HTN (hypertension) Current Visit: Yes Status: Chronic Assessment and Plan: Blood pressure elevated. On hydralazine. Will continue. Will monitor blood pressure and adjust medication regimen accordingly. (10) Dementia Current Visit: Yes Status: Chronic Assessment and Plan: Not on any medications at this time. Will monitor for signs of delirium. (11) Coagulopathy Current Visit: Yes Status: Acute Assessment and Plan: Improved. INR 1.4. Platelets 132 today. Will hold subcutaneous heparin for now. Changed to low-dose Lovenox. (12) DVT prophylaxis Current Visit: Yes Status: Acute Assessment and Plan: With subcutaneous Lovenox (13) Metabolic acidosis Current Visit: Yes Status: Acute Assessment and Plan: Stable. We will continue to monitor. - Time Spent with Patient Total time spent is greater than 50% in coordination of care (as documented) at patient's floor/unit and/or counseling patient: Internal Medicine: Result - Labs CBC & Chem 7: 06/29/18 04:09 06/29/18 04:09 Labs: Short CBC 06/29/18 Range/Units 04:09 WBC 10.0 (4.3-11.1) K/mcL Hgb 11.0 L (12.9-16.9) g/dL Hct 32.7 L (37.5-50.1) % Plt Count 132 L (140-400) K/mcL Neutrophils # 8.1 (1.6-8.9) K/mcL BMP 06/29/18 04:09 Sodium 140 Potassium 3.7 Chloride 116 H Carbon Dioxide 18 L BUN 53 H Creatinine 1.97 H Glucose 94 Calcium 8.2 L - ABG Interpretation ABG results: PT/INR, D-dimer PT 15.7 Seconds (9.4-12.1) H 06/29/18 04:09 - Impressions Impressions Echocardiogram 06/28/18 15:44 Impressions: LVEF 60%. Normal LV chamber size, wall thickness and overall function. 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 Mild left ventricular diastolic dysfunction. Normal right ventricular structure and function. No evidence of pulmonary hypertension. No significant valvular dysfunction. 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 All other wall segments showed normal motion. Findings: Study Quality * Technically adequate exam. ECG Findings * Normal sinus rhythm. Left Ventricle * LVEF 60%. * Normal LV chamber size, wall thickness and overall function. 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 * Mild left ventricular diastolic dysfunction. Right Ventricle * Normal right ventricular structure and function. Left Atrium * Mildly dilated left atrium. Right Atrium * Normal right atrial size. Aortic Valve * Aortic valve not well visualized. * No aortic regurgitation. * No aortic stenosis. Mitral Valve * Normal mitral valve structure and function. * No mitral stenosis. * Trace mitral regurgitation. Tricuspid Valve * Normal tricuspid valve structure and function. * Trace tricuspid regurgitation. * No evidence of pulmonary hypertension. Pulmonic Valve * Pulmonic valve is not well visualized. * No pulmonic regurgitation. Aorta * Normally sized aortic root. Pericardium * The pericardium appears normal. IVC * Normal IVC dimensions and inspiratory collapse. Consult Discharge Plan - Plan Referrals: Harjeet Chilel MD [Primary Care Provider] - (2) Acute on chronic renal failure Qualifiers: Acute renal failure type: unspecified Chronic kidney disease stage: stage 3 ( moderate) Qualified Code(s): N17.9 - Acute kidney failure, unspecified; N18.3 - Chronic kidney disease, stage 3 (moderate) (3) UTI (urinary tract infection) Qualifiers: Urinary tract infection type: catheter-associated UTI Indwelling urinary catheter type: indwelling urethral catheter Encounter type: initial encounter Qualified Code(s): T83.511A - Infection and inflammatory reaction due to indwelling urethral catheter, initial encounter; N39.0 - Urinary tract infection , site not specified (5) Hydronephrosis Qualifiers: Hydronephrosis type: other Qualified Code(s): N13.39 - Other hydronephrosis (7) Diarrhea Qualifiers: Diarrhea type: presumed infectious Qualified Code(s): R19.7 - Diarrhea, unspecified (9) HTN (hypertension) Qualifiers: Hypertension type: essential hypertension Qualified Code(s): I10 - Essential (primary) hypertension (10) Dementia Qualifiers: Dementia type: Alzheimer's disease Alzheimer's disease onset: late-onset Dementia behavioral disturbance: with behavioral disturbance Qualified Code(s) : G30.1 - Alzheimer's disease with late onset; F02.81 - Dementia in other diseases classified elsewhere with behavioral disturbance
--- NOTE | 2018-06-29 13:48 | Infectious Disease Progress No ---
Date of Encounter: 06/29/18 Time of Encounter: 10:10 - Assessment and Plan (1) Severe sepsis Current Visit: Yes Status: Acute The patient had 2 sepsis criteria plus acute kidney injury on admission. Likely secondary to bacteremia and UTI. Improved. White blood cell count has normalized. He has been afebrile. Tachycardia has resolved. Blood cultures drawn 06/17/18 are +2 out of 2 sets for gram-positive cocci, MRSA per PCR, and gram-negative teresa, Proteus per PCR. (2) MRSA bacteremia Current Visit: Yes Status: Acute Causative organism: MRSA per PCR. Source unclear. The patient does have a chronic indwelling [place] catheter and he also has MRSA in his urine, so this is likely the source. Blood cultures drawn 06/27/18 are +2 out of 2 sets for MRSA. Uncomplicated. The patient does not have any chronic indwelling hardware pacemaker and there is no evidence of metastatic infection. The patient has 2 minor modified [place] criteria. No endocarditis stigmata noted on exam. TTE negative for vegetations. Will need a GREGORIO prior to discharge. Repeat blood cultures 2 sets now. Continue vancomycin IV. Pharmacy to dose. Goal trough approximately 15. Duration of treatment depends on the clinical picture. Monitor renal function for drug toxicity and dose adjust antibiotics.. (3) Bacteremia due to Gram-negative bacteria Current Visit: Yes Status: Acute Causative organism: Proteus mirabilis. Source: Likely UTI. Blood cultures drawn 06/27/18 are +2 out of 2 sets for Proteus per PCR. Start Zosyn 3.375 g IV every 8 hours. Monitor renal function and dose adjust antibiotics. Duration of treatment depends on the clinical picture, (4) UTI (urinary tract infection), bacterial Current Visit: No Status: Acute Causative organism Proteus mirabilis and likely MRSA based on blood culture results. Urine cultures positive for Proteus mirabilis and gram-positive cocci. Likely secondary to chronic indwelling [place] catheter. Recommend switching out [place] catheter. Continue Vanc and Zosyn as stated above. Duration of treatment depends on the clinical picture. Monitor renal function of her drug toxicity and dose adjust antibiotics. (5) C. difficile colitis Current Visit: Yes Status: Acute No history of previous C. difficile before. By definition this is severe disease since WBCs over 15,000 and creatinine over 1.5. I think it is fulminant at this point. Clinically, the patient appears improved. There is no documentation of a bowel movement since last night at 10:00. Agree with the oral vancomycin but will decrease the dosing to 125 mg by mouth every 4 hours. Duration of treatment probably 14 days or maybe even longer since patient continues to be on other antibiotics which will not make things much easier. (6) Acute on chronic renal failure Current Visit: Yes Status: Acute Likely secondary to sepsis. Improved. Continue to trend. Strict I's and O's. Dose adjust antibiotics. Avoid nephrotoxins as able. Qualifiers: Acute renal failure type: unspecified Chronic kidney disease stage: stage 3 (moderate) Qualified Code(s): N17.9 - Acute kidney failure, unspecified; N18.3 - Chronic kidney disease, stage 3 (moderate) (7) Acute encephalopathy Current Visit: No Status: Acute Likely secondary sepsis. Unsure what the patient's baseline is as he does have dementia. Continue to monitor closely. (8) Elevated troponin Current Visit: Yes Status: Acute (9) Dementia Current Visit: No Status: Suspected Qualifiers: Dementia type: unspecified type Dementia behavioral disturbance: with behavioral disturbance Qualified Code(s): 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 - Subjective Interval history: Patient seen and examined. No acute events noted overnight. Patient sitting up in bed, states overall he feels well. Denies any fevers or chills or rigors. Denies any chest pain, shortness breath, or cough. Denies any nausea, vomiting, diarrhea, or constipation. States he is unsure when his last bowel movement was. Chronic indwelling [place] catheter remains pain with clear yellow urine. The patient denies pain at this time. He denies oral thrush or new skin lesions. Infect Dis PN-Objective Data - Labs CBC & Chem 7: 06/30/18 04:47 06/30/18 04:47 Labs: Laboratory Results - last 24 hr 06/29/18 06/29/18 06/29/18 04:09 04:09 04:09 WBC 10.0 RBC 3.83 L Hgb 11.0 L Hct 32.7 L MCV 85.4 MCH 28.7 MCHC 33.6 RDW 14.0 Plt Count 132 L MPV 10.9 Immature Gran % 0.6 Seg Neutrophils % 81.4 Lymphocytes % 8.2 Monocytes % 6.3 Eosinophils % 3.1 Basophils % 0.4 Neutrophils # 8.1 Lymphocytes # 0.8 Monocytes # 0.6 Eosinophils # 0.3 Basophils # 0.0 Platelet Estimate Slight Decrease L PT 15.7 H INR 1.4 APTT 58.9 H Sodium 140 Potassium 3.7 Chloride 116 H Carbon Dioxide 18 L BUN 53 H Creatinine 1.97 H Est GFR ( Amer) 40 L Est GFR (Non-Af Amer) 33 L BUN/Creatinine Ratio 27 H Glucose 94 Calculated Osmolality 304 H Calcium 8.2 L Phosphorus 2.6 L Magnesium 2.0 Cultures: Cultures 06/29/18 08:52 Blood Culture - Preliminary Peripheral Venipuncture Culture is incubating and being continuously monitored for growth. Final report to follow. 06/29/18 08:37 Blood Culture - Preliminary Peripheral Venipuncture Culture is incubating and being continuously monitored for growth. Final report to follow. Serology 06/27/18 06/27/18 Range/Units 23:45 23:45 Stl C. cayetanensis PCR Not detected (Not detect) Stool Rotavirus A PCR Not detected (Not detect) Stl Adenov F 40/41 PCR Not detected (Not detect) Stool Astrovirus (PCR) Not detected (Not detect) Stool Campylobacter PCR Not detected (Not detect) Stl C. diff Tox B Gene Positive A (Negative) Stl C. diff Tox A/B PCR See reflex test A (Not detect) Stool Cryptosporidium PCR Not detected (Not detect) Stl Sh Tox Pr E STEC PCR Not detected (Not detect) Stool E coli O157 PCR Not detected (Not detect) Stl Enterotoxigenic E PCR Not detected (Not detect) Stool EPEC (PCR) Not detected (Not detect) Stool EAEC (PCR) Not detected (Not detect) Stl E. histolytica PCR Not detected (Not detect) Stool Giardia Lamblia PCR Not detected (Not detect) Stool Salmonella PCR Not detected (Not detect) Stool Sapovirus (PCR) Not detected (Not detect) Stl P. shigelloides PCR Not detected (Not detect) Stl Shigella/EIEC PCR Not detected (Not detect) St Y.enterocolitica PCR Not detected (Not detect) Stool Vibrio (PCR) Not detected (Not detect) Stl Vibrio cholerae PCR Not detected (Not detect) Stl Norovirus GI/GII PCR Not detected (Not detect) Stl GI Panel (PCR) Com See below - Impressions Impressions Echocardiogram 06/28/18 15:44 Impressions: LVEF 60%. Normal LV chamber size, wall thickness and overall function. 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 Mild left ventricular diastolic dysfunction. Normal right ventricular structure and function. No evidence of pulmonary hypertension. No significant valvular dysfunction. 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 All other wall segments showed normal motion. Findings: Study Quality * Technically adequate exam. ECG Findings * Normal sinus rhythm. Left Ventricle * LVEF 60%. * Normal LV chamber size, wall thickness and overall function. 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 * Mild left ventricular diastolic dysfunction. Right Ventricle * Normal right ventricular structure and function. Left Atrium * Mildly dilated left atrium. Right Atrium * Normal right atrial size. Aortic Valve * Aortic valve not well visualized. * No aortic regurgitation. * No aortic stenosis. Mitral Valve * Normal mitral valve structure and function. * No mitral stenosis. * Trace mitral regurgitation. Tricuspid Valve * Normal tricuspid valve structure and function. * Trace tricuspid regurgitation. * No evidence of pulmonary hypertension. Pulmonic Valve * Pulmonic valve is not well visualized. * No pulmonic regurgitation. Aorta * Normally sized aortic root. Pericardium * The pericardium appears normal. IVC * Normal IVC dimensions and inspiratory collapse. Exam - Constitutional Vitals: Temp Pulse Resp BP Pulse Ox 98.5 F 60 18 141/66 96 06/29/18 11:02 06/29/18 11:02 06/29/18 11:02 06/29/18 11:02 06/29/18 11:02 General appearance: average body habitus, cooperative, no acute distress - Head Head exam: Present: atraumatic, normal inspection, normocephalic - Eye Eye exam: Present: EOMI, normal appearance, PERRL Pupils: Present: normal accommodation Additional comments: No subconjunctival hemorrhage noted. - ENT ENT exam: Present: mucous membranes moist - Neck Neck exam: Present: normal inspection - Respiratory Respiratory exam: Present: CTAB. Absent: rales, respiratory distress, rhonchi, wheezes - Cardiovascular Cardiovascular exam: Present: RRR, +S1, +S2 - GI/Abdominal GI/Abdominal exam: Present: normal bowel sounds, soft. Absent: distended, tenderness Additional comments: [place] catheter noted to be draining clear yellow urine. - Extremities Exam Extremities exam: Present: normal inspection. Absent: joint swelling, pedal edema, tenderness - Neurological Exam Neurological exam: Present: alert, no focal deficits. Absent: oriented X3 ( Oriented to person and place only.) - Psychiatric Psychiatric exam: Present: normal affect, normal mood - Skin Skin exam: Present: dry, intact, normal color, warm Additional comments: No endocarditis stigmata noted. Consult Discharge Plan - Plan Referrals: Harjeet Chilel MD [Primary Care Provider] - - Attending Attestation I examined this patient and my medical decision-making was reviewed with the Resident Physician. I agree with the documented findings, disposition and treatment plan as described except to the extent set forth below.
[2018-06-29] MEDS ORDERED: Ertapenem 1,000 MG in 0.9 % Sodium Chloride Mini Bag 100 ML IVPB SCH (14:00)
[2018-06-29] MEDS: Piperacillin/Tazobactam 3.375 GM in 0.9 % Sodium Chloride Mini Bag 100 ML IVPB SCH (16:04)
--- NOTE | 2018-06-29 17:49 | Electrocardiograph Report ---
[place] [id number] Test Date: 2018-06-27 Pat Name: Paco Alejo Department: EXAM4 Room: 2A16 Gender: Electrolysis Investigator: : 1935 Requested By: Dara Estrada Order Number: [id number] Reading MD: Julissa Wan Measurements Intervals [place] Rate: 93 P: -68 [place]: 152 QRS: -66 QRSD: 85 T: 29 QT: 359 QTc: 447 Interpretive Statements Ectopic atrial rhythm Abnormal R-wave progression, early transition Inferior infarct, old Electronically Signed On 06-29-2018 17:47:58 EDT by Julissa Wan
[2018-06-30] MEDS: Piperacillin/Tazobactam 3.375 GM in 0.9 % Sodium Chloride Mini Bag 100 ML IVPB SCH ×3 (00:10→16:55)
[2018-06-30 05:19] LABS: Basophils # 0.1 K/mcL (0.0-0.2); Basophils % 0.7 %; Eosinophils # 0.7 K/mcL (0.0-0.6); Eosinophils % 8.7 %; Hematocrit 29.8 % (37.5-50.1); Hemoglobin 10.3 g/dL (12.9-16.9); Immature Granulocytes % 0.7 % (0-4); Lymphocytes # 1.1 K/mcL (0.6-4.6); Lymphocytes % 13.5 %; Mean Corpuscular HGB Conc 34.6 g/dL (31.6-35.5); Mean Corpuscular Hemoglobin 28.5 pg (28.0-33.3); Mean Corpuscular Volume 82.5 fL (83.0-100.0); Mean Platelet Volume 10.6 fL (9.4-12.4); Monocytes % 11.3 %; Neutrophils # 5.5 K/mcL (1.6-8.9); Platelet Count 131 K/mcL (140-400); Red Blood Count 3.61 M/mcL (4.19-5.50); Red Cell Distribution Width 14.2 % (11.5-14.5); Segmented Neutrophils % 65.1 %
[2018-06-30] MEDS ORDERED: *HR* Enoxaparin 30 MG/0.3 ML SYRINGE SQ SCH (06:00)
[2018-06-30 06:08] LABS: Potassium 3.6 mEq/L (3.5-5.1)
[2018-06-30] MEDS: hydrALAZINE 25 MG TABLET PO SCH ×3 (10:22→20:26)
[2018-06-30] MEDS: Vancomycin Oral Soln 125 MG/2.5 ML UDC PO SCH ×4 (10:23→20:26)
--- NOTE | 2018-06-30 11:30 | Internal Med Progress Note ---
Hospitalist Progress Note - Encounter Date of Encounter: 06/30/18 Time of Encounter: 11:28 - Subjective Interval History: Patient is comfortable. Denies any new complaints at this time. No abdominal pain or chest pain. Does have some cough. Diarrhea improving. Did have a loose on movement earlier today. - Exam Vitals: Temp Pulse Resp BP Pulse Ox 98.3 F 64 18 169/73 98 06/30/18 07:28 06/30/18 07:28 06/30/18 07:28 06/30/18 07:28 06/30/18 07:28 Exam: General: Patient is alert, no acute distress, oriented x 2 Chest: normal inspection, symmetric chest rise Respiratory: Good respiratory effort. Normal breath sounds. No wheezing or crackles. Cardiovascular: Regular rate and rhythm. s1 and s2 normal. No clicks, rubs, gallops, or murmurs. No pedal edema Abdomen: Abdomen is soft, nontender. Bowel sounds are present Skin: warm, dry, intact. Psych: Patient's affect is normal - Assessment and Plan (1) Severe sepsis Current Visit: Yes Status: Acute Assessment and Plan: Multiple sources. Patient has UTI with Proteus and MRSA. Blood cultures positive for similar organisms but sensitivities are different. For now patient is on Zosyn and vancomycin per infectious disease recommendations. Repeat cultures are currently pending. (2) Acute on chronic renal failure Current Visit: Yes Status: Acute Assessment and Plan: Renal function improving. Creatinine 1.68 today. Continue IV hydration. (3) UTI (urinary tract infection) Current Visit: Yes Status: Acute Assessment and Plan: With Proteus and MRSA. On IV antibiotics per culture results. Due to chronic indwelling [place] catheter. (4) Acute urinary retention Current Visit: Yes Status: Resolved (5) Hydronephrosis Current Visit: Yes Status: Acute Assessment and Plan: Due to urinary tract obstruction and retention. Should improve as patient continues to have good urine output. (6) Bladder outlet obstruction Current Visit: Yes Status: Resolved Assessment and Plan: Improved after [place] catheter exchanged. (7) Diarrhea Current Visit: Yes Status: Acute (8) Elevated troponin Current Visit: Yes Status: Acute Assessment and Plan: Most likely from type 2/demand ischemia. No chest pain. (9) HTN (hypertension) Current Visit: Yes Status: Chronic Assessment and Plan: Blood pressure elevated this afternoon. On hydralazine. Will add amlodipine. (10) Dementia Current Visit: Yes Status: Chronic Assessment and Plan: Supportive care. Monitor for delirium. (11) Coagulopathy Current Visit: Yes Status: Acute Assessment and Plan: Stable platelet count. Recheck INR tomorrow. (12) DVT prophylaxis Current Visit: Yes Status: Acute Assessment and Plan: On low-dose subcutaneous Lovenox (13) Metabolic acidosis Current Visit: Yes Status: Acute Assessment and Plan: Due to acute kidney injury. CO2 19 today. - Time Spent with Patient Total time spent is greater than 50% in coordination of care (as documented) at patient's floor/unit and/or counseling patient: Internal Medicine: Result - Labs CBC & Chem 7: 06/30/18 04:47 06/30/18 04:47 Labs: Short CBC 06/30/18 Range/Units 04:47 WBC 8.4 (4.3-11.1) K/mcL Hgb 10.3 L (12.9-16.9) g/dL Hct 29.8 L (37.5-50.1) % Plt Count 131 L (140-400) K/mcL Neutrophils # 5.5 (1.6-8.9) K/mcL BMP 06/30/18 04:47 Sodium 140 Potassium 3.6 Chloride 115 H Carbon Dioxide 19 L BUN 41 H Creatinine 1.68 H Glucose 88 Calcium 8.0 L - ABG Interpretation ABG results: PT/INR, D-dimer PT 15.7 Seconds (9.4-12.1) H 06/29/18 04:09 Consult Discharge Plan - Plan Referrals: Harjeet Chilel MD [Primary Care Provider] - (2) Acute on chronic renal failure Qualifiers: Acute renal failure type: unspecified Chronic kidney disease stage: stage 3 ( moderate) Qualified Code(s): N17.9 - Acute kidney failure, unspecified; N18.3 - Chronic kidney disease, stage 3 (moderate) (3) UTI (urinary tract infection) Qualifiers: Urinary tract infection type: catheter-associated UTI Indwelling urinary catheter type: indwelling urethral catheter Encounter type: initial encounter Qualified Code(s): T83.511A - Infection and inflammatory reaction due to indwelling urethral catheter, initial encounter; N39.0 - Urinary tract infection , site not specified (5) Hydronephrosis Qualifiers: Hydronephrosis type: other Qualified Code(s): N13.39 - Other hydronephrosis (7) Diarrhea Qualifiers: Diarrhea type: presumed infectious Qualified Code(s): R19.7 - Diarrhea, unspecified (9) HTN (hypertension) Qualifiers: Hypertension type: essential hypertension Qualified Code(s): I10 - Essential (primary) hypertension (10) Dementia Qualifiers: Dementia type: Alzheimer's disease Alzheimer's disease onset: late-onset Dementia behavioral disturbance: with behavioral disturbance Qualified Code(s) : G30.1 - Alzheimer's disease with late onset; F02.81 - Dementia in other diseases classified elsewhere with behavioral disturbance
--- NOTE | 2018-06-30 13:35 | Infectious Disease Progress No ---
Date of Encounter: 06/30/18 Time of Encounter: 09:30 - Assessment and Plan (1) Severe sepsis Current Visit: Yes Status: Acute The patient had 2 sepsis criteria plus acute kidney injury on admission. Likely secondary to bacteremia and UTI. Improved. White blood cell count has normalized. He has been afebrile. Tachycardia has resolved. Blood cultures drawn 06/27/18 are +2 out of 2 sets for gram-positive cocci, MRSA per PCR, and gram-negative teresa, Proteus per PCR. Repeat blood cultures drawn 06/29/18 are pending x 2 sets. (2) MRSA bacteremia Current Visit: Yes Status: Acute Causative organism: MRSA per PCR. Source unclear. The patient does have a chronic indwelling [place] catheter and he also has MRSA in his urine, so this is likely the source. Blood cultures drawn 06/27/18 are +2 out of 2 sets for MRSA. Uncomplicated. The patient does not have any chronic indwelling hardware pacemaker and there is no evidence of metastatic infection. The patient has 2 minor modified [place] criteria. No endocarditis stigmata noted on exam. TTE negative for vegetations. Will need a GREGORIO prior to discharge.--> planning for tomorrow. Repeat blood cultures 2 sets drawn 06/29/18 are pending x 2 sets. Continue vancomycin IV. Pharmacy to dose. Goal trough approximately 15. Duration of treatment depends on the clinical picture. Monitor renal function for drug toxicity and dose adjust antibiotics.. (3) Bacteremia due to Gram-negative bacteria Current Visit: Yes Status: Acute Causative organism: Proteus mirabilis. Source: Likely UTI. Blood cultures drawn 06/27/18 are +2 out of 2 sets for Proteus per PCR. Repeat blood cultures drawn 06/29/18 are pending x 2 sets. Continue Zosyn 3.375 g IV every 8 hours. Monitor renal function and dose adjust antibiotics. Duration of treatment depends on the clinical picture, (4) UTI (urinary tract infection), bacterial Current Visit: No Status: Acute Causative organism Proteus mirabilis and MRSA. Likely secondary to chronic indwelling [place] catheter. Recommend switching out [place] catheter. Continue Vanc and Zosyn as stated above. Duration of treatment depends on the clinical picture. Monitor renal function of her drug toxicity and dose adjust antibiotics. (5) C. difficile colitis Current Visit: Yes Status: Acute No history of previous C. difficile before. By definition this is severe disease since WBCs over 15,000 and creatinine over 1.5. I think it is fulminant at this point. Clinically, the patient appears improved. There is no documentation of a bowel movement since last night at 10:00. Agree with the oral vancomycin 125mg PO QID. (day 4) Duration of treatment probably 14 days or maybe even longer since patient continues to be on other antibiotics which will not make things much easier. (6) Acute on chronic renal failure Current Visit: Yes Status: Acute Likely secondary to sepsis. Improved. Continue to trend. Strict I's and O's. Dose adjust antibiotics. Avoid nephrotoxins as able. Qualifiers: Acute renal failure type: unspecified Chronic kidney disease stage: stage 3 (moderate) Qualified Code(s): N17.9 - Acute kidney failure, unspecified; N18.3 - Chronic kidney disease, stage 3 (moderate) (7) Acute encephalopathy Current Visit: No Status: Acute Likely secondary sepsis. Unsure what the patient's baseline is as he does have dementia. Continue to monitor closely. (8) Elevated troponin Current Visit: Yes Status: Acute (9) Dementia Current Visit: No Status: Suspected Qualifiers: Dementia type: unspecified type Dementia behavioral disturbance: with behavioral disturbance Qualified Code(s): 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 - Subjective Interval history: Patient seen and examined. No acute events noted overnight. Patient sitting up in bed, states overall he feels well. Denies any fevers or chills or rigors. Denies any chest pain, shortness breath, or cough. Denies any nausea, vomiting, diarrhea, or constipation. Incontinent of stool during my exam today. Chronic indwelling [place] catheter remains pain with clear yellow urine. The patient denies pain at this time. He denies oral thrush or new skin lesions. Infect Dis PN-Objective Data - Labs CBC & Chem 7: 06/30/18 04:47 06/30/18 04:47 Labs: Laboratory Results - last 24 hr 06/30/18 06/30/18 04:47 04:47 WBC 8.4 RBC 3.61 L Hgb 10.3 L Hct 29.8 L MCV 82.5 L MCH 28.5 MCHC 34.6 RDW 14.2 Plt Count 131 L MPV 10.6 Immature Gran % 0.7 Seg Neutrophils % 65.1 Lymphocytes % 13.5 Monocytes % 11.3 Eosinophils % 8.7 Basophils % 0.7 Neutrophils # 5.5 Lymphocytes # 1.1 Monocytes # 1.0 Eosinophils # 0.7 H Basophils # 0.1 Sodium 140 Potassium 3.6 Chloride 115 H Carbon Dioxide 19 L BUN 41 H Creatinine 1.68 H Est GFR ( Amer) 48 L Est GFR (Non-Af Amer) 39 L BUN/Creatinine Ratio 24 Glucose 88 Calculated Osmolality 300 Calcium 8.0 L Cultures: Cultures 06/29/18 08:52 Blood Culture - Preliminary Peripheral Venipuncture Culture is incubating and being continuously monitored for growth. Final report to follow. 06/29/18 08:37 Blood Culture - Preliminary Peripheral Venipuncture Culture is incubating and being continuously monitored for growth. Final report to follow. Serology 06/27/18 06/27/18 Range/Units 23:45 23:45 Stl C. cayetanensis PCR Not detected (Not detect) Stool Rotavirus A PCR Not detected (Not detect) Stl Adenov F 40/41 PCR Not detected (Not detect) Stool Astrovirus (PCR) Not detected (Not detect) Stool Campylobacter PCR Not detected (Not detect) Stl C. diff Tox B Gene Positive A (Negative) Stl C. diff Tox A/B PCR See reflex test A (Not detect) Stool Cryptosporidium PCR Not detected (Not detect) Stl Sh Tox Pr E STEC PCR Not detected (Not detect) Stool E coli O157 PCR Not detected (Not detect) Stl Enterotoxigenic E PCR Not detected (Not detect) Stool EPEC (PCR) Not detected (Not detect) Stool EAEC (PCR) Not detected (Not detect) Stl E. histolytica PCR Not detected (Not detect) Stool Giardia Lamblia PCR Not detected (Not detect) Stool Salmonella PCR Not detected (Not detect) Stool Sapovirus (PCR) Not detected (Not detect) Stl P. shigelloides PCR Not detected (Not detect) Stl Shigella/EIEC PCR Not detected (Not detect) St Y.enterocolitica PCR Not detected (Not detect) Stool Vibrio (PCR) Not detected (Not detect) Stl Vibrio cholerae PCR Not detected (Not detect) Stl Norovirus GI/GII PCR Not detected (Not detect) Stl GI Panel (PCR) Com See below Exam - Constitutional Vitals: Temp Pulse Resp BP Pulse Ox 98.2 F 63 18 154/68 98 06/30/18 11:34 06/30/18 11:34 06/30/18 11:34 06/30/18 11:34 06/30/18 11:34 General appearance: average body habitus, cooperative, no acute distress - Head Head exam: Present: atraumatic, normal inspection, normocephalic - Eye Eye exam: Present: EOMI, normal appearance, PERRL Pupils: Present: normal accommodation Additional comments: No subconjunctival hemorrhage noted. - ENT ENT exam: Present: mucous membranes moist - Neck Neck exam: Present: normal inspection - Respiratory Respiratory exam: Present: CTAB. Absent: rales, respiratory distress, rhonchi, wheezes - Cardiovascular Cardiovascular exam: Present: RRR, +S1, +S2 - GI/Abdominal GI/Abdominal exam: Present: normal bowel sounds, soft. Absent: distended, tenderness Additional comments: [place] catheter noted to be draining clear yellow urine. - Extremities Exam Extremities exam: Present: normal inspection. Absent: joint swelling, pedal edema, tenderness - Neurological Exam Neurological exam: Present: alert, oriented X3, no focal deficits - Psychiatric Psychiatric exam: Present: normal affect, normal mood - Skin Skin exam: Present: dry, intact, normal color, warm Consult Discharge Plan - Plan Referrals: Harjeet Chilel MD [Primary Care Provider] - - Attending Attestation I examined this patient and my medical decision-making was reviewed with the Resident Physician. I agree with the documented findings, disposition and treatment plan as described except to the extent set forth below.
--- NOTE | 2018-06-30 18:02 | Event Note ---
Date of Encounter: 06/30/18 Time of Encounter: 14:59 - Cardiology Event Note Pt with sepsis and blood culture positive for MRSA. Agree with TTE and if negative, GREGORIO to rule out infective endocarditis.
[2018-07-01] MEDS: Piperacillin/Tazobactam 3.375 GM in 0.9 % Sodium Chloride Mini Bag 100 ML IVPB SCH ×2 (00:29→11:01)
[2018-07-01] MEDS ORDERED: *HR* Enoxaparin 40 MG/0.4 ML SYRINGE SQ SCH (06:00)
[2018-07-01 08:18] LABS: Calcium 7.9 mg/dL (8.6-10.3); Potassium 3.7 mEq/L (3.5-5.1)
[2018-07-01] MEDS ORDERED: Tetracaine/Benzocaine/Butamben 200MG/SPRAY (100SPY/BOT) MM ONE (08:28)
[2018-07-01] MEDS ORDERED: *HR* FentaNYL (PF) 100 MCG/2 ML VIAL IVP PRN (08:28)
[2018-07-01] MEDS ORDERED: 0.9 % Sodium Chloride 500 ML IVC ONE (08:28)
[2018-07-01] MEDS ORDERED: *HR* Midazolam HCl 5 MG/5 ML VIAL IVP PRN (08:28)
[2018-07-01] MEDS ORDERED: Lidocaine Viscous Oral Soln 15 ML SOLUTION MM PRN (08:28)
[2018-07-01 10:41] VITALS: BP 159/74
[2018-07-01] MEDS ORDERED: Lidocaine -MPF 1% 5 ML AMPUL INFILT ONE (10:57)
[2018-07-01] MEDS: hydrALAZINE 25 MG TABLET PO SCH ×2 (11:00→14:26)
[2018-07-01] MEDS: Vancomycin Oral Soln 125 MG/2.5 ML UDC PO SCH ×2 (11:02→14:26)
--- NOTE | 2018-07-01 12:35 | Event Note ---
Date of Encounter: 07/01/18 Time of Encounter: 12:35 - Cardiology Event Note GREGORIO completed this AM. Final report pending. EF preserved. No vegetations noted. Cardiology signing of. Reconsult PRN.
--- NOTE | 2018-07-01 12:56 | Infectious Disease Progress No ---
Date of Encounter: 07/01/18 Time of Encounter: 11:05 - Assessment and Plan (1) Severe sepsis Current Visit: Yes Status: Acute The patient had 2 sepsis criteria plus acute kidney injury on admission. Likely secondary to bacteremia and UTI. Improved. White blood cell count has normalized. He has been afebrile. Tachycardia has resolved. Blood cultures drawn 06/27/18 are +2 out of 2 sets for MRSA and P. mirabilis. Repeat blood cultures drawn 06/29/18 are NGTD x 2 sets. (2) MRSA bacteremia Current Visit: Yes Status: Acute Causative organism: MRSA per PCR. Source unclear. The patient does have a chronic indwelling [place] catheter and he also has MRSA in his urine, so this is likely the source. Blood cultures drawn 06/27/18 are +2 out of 2 sets for MRSA. Uncomplicated. The patient does not have any chronic indwelling hardware pacemaker and there is no evidence of metastatic infection. The patient has [address] [facility] criteria. No endocarditis stigmata noted on exam. TTE negative for vegetations. GREGORIO negative. Repeat blood cultures 2 sets drawn 06/29/18 are NGTD x 2 sets. Continue vancomycin IV. Pharmacy to dose. Goal trough approximately 15. Duration of treatment depends on the clinical picture, but recommend a total of 14 days from the first set of negative blood cultures. Treat through 07/12/18. Monitor renal function for drug toxicity and dose adjust antibiotics. Continue contact precautions per protocol. Consult VAT for PICC line placement. Will need weekly CBC, BUN/Cr, and Vanc trough. Weekly PICC care per protocol. (3) Bacteremia due to Gram-negative bacteria Current Visit: Yes Status: Acute Causative organism: Proteus mirabilis. Source: Likely UTI. Blood cultures drawn 06/27/18 are +2 out of 2 sets for Proteus per PCR. Repeat blood cultures drawn 06/29/18 are NGTD x 2 sets. Discontinue Zosyn. Start Ertapenem 1 gram IV daily for ease of dosing on discharge. Monitor renal function and dose adjust antibiotics. Duration of treatment depends on the clinical picture, but recommend a total of 14 days from the first set of negative blood cultures. Treat through 07/12/18. (4) UTI (urinary tract infection), bacterial Current Visit: No Status: Acute Causative organism Proteus mirabilis and MRSA. Likely secondary to chronic indwelling [place] catheter. Recommend switching out [place] catheter. Continue Vanc and start Ertapenem as stated above. Duration of treatment depends on the clinical picture. Monitor renal function of her drug toxicity and dose adjust antibiotics. (5) C. difficile colitis Current Visit: Yes Status: Acute No history of previous C. difficile before. By definition this is severe disease since WBCs over 15,000 and creatinine over 1.5. I think it is fulminant at this point. Clinically, the patient appears improved. There is no documentation of a bowel movement since last night at 10:00. Agree with the oral vancomycin 125mg PO QID. (day 5) Duration of treatment probably 14 days or maybe even longer since patient continues to be on other antibiotics which will not make things much easier. Recommend extending duration of PO Vancomycin to 3 days after IV antibiotics are stopped. Continue C. diff precautions per protocol. (6) Acute on chronic renal failure Current Visit: Yes Status: Acute Likely secondary to sepsis. Improved. Continue to trend. Strict I's and O's. Dose adjust antibiotics. Avoid nephrotoxins as able. Qualifiers: Acute renal failure type: unspecified Chronic kidney disease stage: stage 3 (moderate) Qualified Code(s): N17.9 - Acute kidney failure, unspecified; N18.3 - Chronic kidney disease, stage 3 (moderate) (7) Acute encephalopathy Current Visit: No Status: Acute Likely secondary sepsis. Unsure what the patient's baseline is as he does have dementia, but appears improved. Continue to monitor closely. (8) Elevated troponin Current Visit: Yes Status: Acute (9) Dementia Current Visit: No Status: Suspected Qualifiers: Dementia type: unspecified type Dementia behavioral disturbance: with behavioral disturbance Qualified Code(s): 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 - Subjective Interval history: Patient seen and examined. No acute events noted overnight. Patient sitting up in bed, states overall he feels well. Denies any fevers or chills or rigors. Denies any chest pain, shortness breath, or cough. Denies any nausea, vomiting, diarrhea, or constipation. Per nursing, one stool documented yesterday. Chronic indwelling [place] catheter remains pain with clear yellow urine. The patient denies pain at this time. He denies oral thrush or new skin lesions. Infect Dis PN-Objective Data - Labs CBC & Chem 7: 06/30/18 04:47 07/01/18 06:54 Labs: Laboratory Results - last 24 hr 07/01/18 06:54 Sodium 139 Potassium 3.7 Chloride 115 H Carbon Dioxide 18 L BUN 33 H Creatinine 1.60 H Est GFR ( Amer) 51 L Est GFR (Non-Af Amer) 42 L BUN/Creatinine Ratio 21 Glucose 94 Calculated Osmolality 295 Calcium 7.9 L Vancomycin Trough 21 H Cultures: Cultures 06/29/18 08:52 Blood Culture - Preliminary Peripheral Venipuncture Culture is incubating and being continuously monitored for growth. Final report to follow. 06/29/18 08:37 Blood Culture - Preliminary Peripheral Venipuncture Culture is incubating and being continuously monitored for growth. Final report to follow. Serology 06/27/18 06/27/18 Range/Units 23:45 23:45 Stl C. cayetanensis PCR Not detected (Not detect) Stool Rotavirus A PCR Not detected (Not detect) Stl Adenov F 40/41 PCR Not detected (Not detect) Stool Astrovirus (PCR) Not detected (Not detect) Stool Campylobacter PCR Not detected (Not detect) Stl C. diff Tox B Gene Positive A (Negative) Stl C. diff Tox A/B PCR See reflex test A (Not detect) Stool Cryptosporidium PCR Not detected (Not detect) Stl Sh Tox Pr E STEC PCR Not detected (Not detect) Stool E coli O157 PCR Not detected (Not detect) Stl Enterotoxigenic E PCR Not detected (Not detect) Stool EPEC (PCR) Not detected (Not detect) Stool EAEC (PCR) Not detected (Not detect) Stl E. histolytica PCR Not detected (Not detect) Stool Giardia Lamblia PCR Not detected (Not detect) Stool Salmonella PCR Not detected (Not detect) Stool Sapovirus (PCR) Not detected (Not detect) Stl P. shigelloides PCR Not detected (Not detect) Stl Shigella/EIEC PCR Not detected (Not detect) St Y.enterocolitica PCR Not detected (Not detect) Stool Vibrio (PCR) Not detected (Not detect) Stl Vibrio cholerae PCR Not detected (Not detect) Stl Norovirus GI/GII PCR Not detected (Not detect) Stl GI Panel (PCR) Com See below Exam - Constitutional Vitals: Temp Pulse Resp BP Pulse Ox 98.5 F 62 18 159/74 96 07/01/18 10:40 07/01/18 10:40 07/01/18 10:40 07/01/18 10:40 07/01/18 10:40 General appearance: average body habitus, cooperative, no acute distress - Head Head exam: Present: atraumatic, normal inspection, normocephalic - Eye Eye exam: Present: EOMI, normal appearance, PERRL Pupils: Present: normal accommodation - ENT ENT exam: Present: mucous membranes moist - Neck Neck exam: Present: normal inspection - Respiratory Respiratory exam: Present: CTAB. Absent: rales, respiratory distress, rhonchi, wheezes - Cardiovascular Cardiovascular exam: Present: RRR, +S1, +S2 - GI/Abdominal GI/Abdominal exam: Present: normal bowel sounds, soft. Absent: distended, tenderness Additional comments: [place] catheter noted to be draining clear yellow urine. - Extremities Exam Extremities exam: Present: normal inspection. Absent: joint swelling, pedal edema, tenderness - Neurological Exam Neurological exam: Present: alert, oriented X3, no focal deficits - Psychiatric Psychiatric exam: Present: normal affect, normal mood - Skin Skin exam: Present: dry, intact, normal color, warm Consult Discharge Plan - Plan Instructions: Sepsis (DC), Clostridium Difficile Infection (DC) Referrals: Harjeet Chilel MD [Primary Care Provider] - (in 1 week) Lizy Arnold CNP [Advanced Practice Nurse] - (in 1 week) Prescriptions: amLODIPine [Norvasc] 5 mg PO DAILY #30 tablet Ertapenem Sodium [Invanz] 1 gm INTRAVEN DAILY #10 vial Lactobacillus Acidophilus [Acidophilus Probiotic] 1 mg PO BID #60 tablet Vancomycin HCl in Dextrose 5 % [Vancomycin-D5w 1.25 Gram/250Ml] 1.25 gm IV DAILY 10 Days mls Vancomycin Oral Soln [Firvanq] 125 mg PO QID 14 Days udc - Attending Attestation I examined this patient and my medical decision-making was reviewed with the Resident Physician. I agree with the documented findings, disposition and treatment plan as described except to the extent set forth below.
--- NOTE | 2018-07-01 13:28 | Discharge Summary ---
- NOTES TO OUTPATIENT PROVIDER Notes to Outpatient Provider: [facility] hospitalized here with severe sepsis related to urinary tract infection. Patient has had a chronic indwelling [place] catheter which shows no longer draining. A new catheter was placed in here in the ER and patient a lot of sediment in it. Urine culture has been positive for Proteus mirabilis and MRSA. 2 sets of blood cultures were also positive for the same organism. Infectious disease has been helping manage the patient's care. He underwent a transthoracic echocardiogram and a transesophageal echocardiogram which did not show any vegetations. His [place] catheter will be replaced prior to discharge. He is stable to be discharged to [facility] on intravenous antibiotics to complete 14 day treatment. He will be on ertapenem and vancomycin. His renal function, CBC and vancomycin trough levels will need to be followed. He will also follow up with infectious disease after discharge. Patient had also been having diarrhea and previously has been diagnosed with C. difficile. His stool was again positive for C. difficile. Patient will be on oral vancomycin to treat C. difficile till 07/15/18. Orders not resulted at time of discharge: Pending orders 06/29/18 08:52 Culture,Blood [BC] Stat 07/02/18 04:00 Basic Metabolic Panel AM 0400 Date of Encounter: 07/01/18 Time of Encounter: 13:25 - Discharge Diagnosis (1) Severe sepsis Priority: Primary Status: Acute (2) Acute on chronic renal failure Priority: Secondary Status: Acute Qualifiers: Acute renal failure type: unspecified Chronic kidney disease stage: stage 3 (moderate) Qualified Code(s): N17.9 - Acute kidney failure, unspecified; N18.3 - Chronic kidney disease, stage 3 (moderate) (3) C. difficile colitis Priority: Secondary Status: Acute (4) UTI (urinary tract infection) Priority: Secondary Status: Acute Qualifiers: Urinary tract infection type: catheter-associated UTI Indwelling urinary catheter type: indwelling urethral catheter Encounter type: initial encounter Qualified Code(s): T83.511A - Infection and inflammatory reaction due to indwelling urethral catheter, initial encounter; N39.0 - Urinary tract infection , site not specified (5) Acute urinary retention Priority: Secondary Status: Resolved (6) Hydronephrosis Priority: Secondary Status: Acute Qualifiers: Hydronephrosis type: other Qualified Code(s): N13.39 - Other hydronephrosis (7) Bladder outlet obstruction Priority: Secondary Status: Resolved (8) Diarrhea Priority: Secondary Status: Acute Qualifiers: Diarrhea type: presumed infectious Qualified Code(s): R19.7 - Diarrhea, unspecified (9) Elevated troponin Priority: Secondary Status: Acute (10) HTN (hypertension) Priority: Secondary Status: Chronic Qualifiers: Hypertension type: essential hypertension Qualified Code(s): I10 - Essential (primary) hypertension (11) Dementia Priority: Secondary Status: Chronic Qualifiers: Dementia type: Alzheimer's disease Alzheimer's disease onset: late-onset Dementia behavioral disturbance: with behavioral disturbance Qualified Code(s) : G30.1 - Alzheimer's disease with late onset; F02.81 - Dementia in other diseases classified elsewhere with behavioral disturbance (12) Coagulopathy Priority: Secondary Status: Acute (13) DVT prophylaxis Priority: Secondary Status: Acute (14) Metabolic acidosis Priority: Secondary Status: Acute Hospital course: Mr. Alejo is a 82 year old male Patient with history of dementia, chronic indwelling [place] catheter who [facility] was hospitalized here with severe sepsis related to urinary tract infection. Patient has had a chronic indwelling [place] catheter which shows no longer draining. A new catheter was placed in here in the ER and patient a lot of sediment in it. Urine culture has been positive for Proteus mirabilis and MRSA. 2 sets of blood cultures were also positive for the same organism. Infectious disease has been helping manage the patient's care. He underwent a transthoracic echocardiogram and a transesophageal echocardiogram which did not show any vegetations. His [place] catheter will be replaced prior to discharge. He is stable to be discharged to [facility] on intravenous antibiotics to complete 14 day treatment. He will be on ertapenem and vancomycin. His renal function, CBC and vancomycin trough levels will need to be followed. He will also follow up with infectious disease after discharge. Patient had also been having diarrhea and previously has been diagnosed with C. difficile. His stool was again positive for C. difficile. Patient will be on oral vancomycin to treat C. difficile till 07/15/18. Discharge discussed with: patient, nurse, it web development consultant - Time Spent with Patient Total time spent providing and/or coordinating discharge services: Greater than 30 minutes (45 min) - Discharge Medications Prescriptions: Ertapenem Sodium [Invanz] 1 gm INTRAVEN DAILY #10 vial Lactobacillus Acidophilus [Acidophilus Probiotic] 1 mg PO BID #60 tablet Vancomycin HCl in Dextrose 5 % [Vancomycin-D5w 1.25 Gram/250Ml] 1.25 gm IV DAILY 10 Days mls Vancomycin Oral Soln [Firvanq] 125 mg PO QID 14 Days udc Home Medications: Balsam Izabela/[place] Oil [Venelex Ointment] 60 gm TP BID 06/27/18 [History] Cholecalciferol (D-3) [Vitamin D] 5,000 unit PO DAILY 06/27/18 [History] Ferrous Sulfate [Iron] 325 mg PO BID 06/27/18 [History] Furosemide [Lasix] 40 mg PO DAILY 06/27/18 [History] Hydralazine HCl 50 mg PO TID 06/27/18 [History] Melatonin/Pyridoxine HCl (B6) [Melatonin 3 mg Tablet] 2 tab PO HS PRN 06/27/18 [ History] Potassium Chloride 20 meq PO DAILY 06/27/18 [History] Ertapenem Sodium [Invanz] 1 gm INTRAVEN DAILY #10 vial 07/01/18 [Rx] Lactobacillus Acidophilus [Acidophilus Probiotic] 1 mg PO BID #60 tablet [Rx] Vancomycin HCl in Dextrose 5 % [Vancomycin-D5w 1.25 Gram/250Ml] 1.25 gm IV DAILY 10 Days mls 07/01/18 [Rx] Vancomycin Oral Soln [Firvanq] 125 mg PO QID 14 Days udc 07/01/18 [Rx] Allergies/Adverse Reactions: 3 Allergy/AdvReac Type Severity Reaction Status Date / Time No Known Drug Allergies Allergy Unknown none Verified 06/27/18 14:16 Date of admission: 06/27/18 14:39 Primary care physician: Harjeet Chilel MD Consults: 06/28/18 07:37 Consult to Infectious Diseases [CONS] Routine Consulting Provider: Infectious Disease Shyann Reason for Consult: severe sepsis with bacteremia; multiple species identified Call Completed: No 06/28/18 07:53 Consult to Networks Software Consultant [CONS] Routine Reason for SW Consult: return to [facility]CF?? [facility]? 06/30/18 12:29 Consult to Cardiology [CONS] Routine Comment: Consulting Provider: Cardiology Burton Reason for Consult: Sepsis with concern for IE/ Needs GREGORIO per ID Time Notified: 12:29 Call Completed: Yes 07/01/18 10:57 Consult to Invasive Line Access Team [CONS] Routine Reason for Consult: Picc Line Insertion Line Type: PICC Discharging clinician: Chester Farley Anticipated date of discharge: 07/01/18 - Constitutional Vitals: Temp Pulse Resp BP Pulse Ox 98.5 F 62 18 159/74 96 07/01/18 10:40 07/01/18 10:40 07/01/18 10:40 07/01/18 10:40 07/01/18 10:40 General appearance: Present: cooperative, A&O X 1, pleasant, answers questions appropriately Exam: . - Respiratory Respiratory exam: Present: CTAB. Absent: accessory muscle use, rales, rhonchi, wheezes - Cardiovascular Cardiovascular exam: Present: RRR, +S1, +S2. Absent: diastolic murmur, gallop, rubs, systolic murmur - GI/Abdominal GI/Abdominal exam: Present: normal bowel sounds, soft, no peritoneal signs. Absent: distended, tenderness - Patient Status Disposition: Transfer SNF Condition: Fair Functional capacity at discharge: bed bound Overall status at discharge: patient is progressing back to baseline - Discharge Instructions Instructions: Sepsis (DC), Clostridium Difficile Infection (DC) Follow Up With: Harjeet Chilel MD [Primary Care Provider] - (in 1 week) Lizy Arnold CNP [Advanced Practice Nurse] - (in 1 week) - Diet and Activity Activity: increase activity as tolerated Diet: low fat, low cholesterol, low salt diet
--- NOTE | 2018-07-01 13:40 | Physician Discharge Referral ---
ExtendedCare Referral Info Provider in Charge after Transfer: PCP Institutional Level of Care: Skilled - Diagnosis (1) Severe sepsis Priority: Primary Status: Acute (2) Acute on chronic renal failure Priority: Secondary Status: Acute (3) UTI (urinary tract infection) Priority: Secondary Status: Acute (4) Acute urinary retention Priority: Secondary Status: Resolved (5) Hydronephrosis Priority: Secondary Status: Acute (6) Bladder outlet obstruction Priority: Secondary Status: Resolved (7) Diarrhea Priority: Secondary Status: Acute (8) Elevated troponin Priority: Secondary Status: Acute (9) HTN (hypertension) Priority: Secondary Status: Chronic (10) Dementia Priority: Secondary Status: Chronic (11) Coagulopathy Priority: Secondary Status: Acute (12) DVT prophylaxis Priority: Secondary Status: Acute (13) Metabolic acidosis Priority: Secondary Status: Acute Prognosis: Fair Aware of Diagnosis: Patient, Family Aware of Prognosis: Family - Transfer Medications Prescriptions: Ertapenem Sodium [Invanz] 1 gm INTRAVEN DAILY #10 vial Vancomycin HCl in Dextrose 5 % [Vancomycin-D5w 1.25 Gram/250Ml] 1.25 gm IV DAILY 10 Days mls Vancomycin Oral Soln [Firvanq] 125 mg PO QID 14 Days udc Home Medications: Balsam Epps/[place] Oil [Venelex Ointment] 60 gm TP BID 06/27/18 [History] Cholecalciferol (D-3) [Vitamin D] 5,000 unit PO DAILY 06/27/18 [History] Ferrous Sulfate [Iron] 325 mg PO BID 06/27/18 [History] Furosemide [Lasix] 40 mg PO DAILY 06/27/18 [History] Hydralazine HCl 50 mg PO TID 06/27/18 [History] Melatonin/Pyridoxine HCl (B6) [Melatonin 3 mg Tablet] 2 tab PO HS PRN 06/27/18 [ History] Potassium Chloride 20 meq PO DAILY 06/27/18 [History] Ertapenem Sodium [Invanz] 1 gm INTRAVEN DAILY #10 vial 07/01/18 [Rx] Vancomycin HCl in Dextrose 5 % [Vancomycin-D5w 1.25 Gram/250Ml] 1.25 gm IV DAILY 10 Days mls 07/01/18 [Rx] Vancomycin Oral Soln [Firvanq] 125 mg PO QID 14 Days udc 07/01/18 [Rx] Allergies/Adverse Reactions: 3 Allergy/AdvReac Type Severity Reaction Status Date / Time No Known Drug Allergies Allergy Unknown none Verified 06/27/18 14:16 - Respiratory Orders Smoking Cessation: Smoking cessation has been advised. For more information, call the [employer] Tobacco Quit Line at 1-490-DNVU-NOW. - Lab Orders Lab Orders: Other (include drug levels w/frequency) (CBC, BMP, vancomycin trough levels weekly while patient is receiving IV antibiotics) - Advance Directives Code Status: DNR-Arrest (DNR-CCA) - Mobility Orders Other - Rehabiliation Orders Rehab Potential: Fair Rehab Orders: Evaluation for Physical Therapy, Evaluation for Occupational Therapy - Treatments Skin tear care topically daily PRN per policy - Diet Orders Cardiac CERTIFICATION: I certify that the transfer of the above named patient to an Extended Care Facility is necessary for the continuing treatment of the diagnosis listed. The above information is true and accurate reflection of patient's current condition. Confidential - Redisclosure prohibited without a patient's written consent.
[2018-07-01] MEDS ORDERED: Ertapenem 1,000 MG in 0.9 % Sodium Chloride Mini Bag 100 ML IVPB SCH (14:00)
[2018-07-01] MEDS ORDERED: amLODIPine 5 MG TABLET PO SCH (15:45)
[2018-07-01] MEDS ORDERED: Aminoglycoside Consult 1 EACH MC ONE (16:46)
== END 2018-07-01 16:47 | DRG 871 ==
LOC: EMEROOARM 09:30 → SUATTDRO 14:39 → 2ANU 14:39
PROVIDERS: ADMIT Student in an Organized Health Care Education/Training Program; ATTEND Internal Medicine

== ENCOUNTER 2020-07-13 18:52 | Inpatient (IN) ==
[2020-07-13] MEDS ORDERED: Naloxone 0.4 MG/ML INJ IVP PRN (20:58)
[2020-07-13] MEDS ORDERED: *HR* Heparin 5,000 UNIT/ML VIAL IVP PRN ×2 (21:08)
[2020-07-13] MEDS ORDERED: Heparin 25,000UNIT/250ML 1/2NS 25,000 UNIT/250 ML IV.SOLN IVC SCH (21:15)
[2020-07-13 21:50] LABS: Basophils # 0.1 K/mcL (0.0-0.2); Basophils % 0.4 %; Eosinophils # 0.1 K/mcL (0.0-0.6); Hematocrit 37.6 % (37.5-50.1); Immature Granulocytes % 0.3 % (0-4); Lymphocytes % 22.1 %; Mean Corpuscular HGB Conc 34.6 g/dL (31.6-35.5); Mean Corpuscular Hemoglobin 29.5 pg (28.0-33.3); Mean Corpuscular Volume 85.5 fL (83.0-100.0); Mean Platelet Volume 10.1 fL (9.4-12.4); Monocytes # 1.2 K/mcL (0.0-1.3); Monocytes % 8.7 %; Platelet Count 255 K/mcL (140-400); Red Cell Distribution Width 13.2 % (11.5-14.5); Segmented Neutrophils % 67.5 %; White Blood Count 13.4 K/mcL (4.3-11.1)
[2020-07-13 21:54] LABS: Heparin anti-factor XA UFH 0.62 IU/mL (0.30-0.70); INR 1.5
[2020-07-13 22:11] LABS: Albumin 3.8 g/dL (3.5-5.7); Albumin/Globulin Ratio 1.1 (1.1-2.2); Bilirubin,Total 0.6 mg/dL (0.3-1.0); Globulin 3.6 g/dL (2.4-3.5); Phosphorous 2.2 mg/dL (2.7-4.5); Potassium 3.3 mEq/L (3.5-5.1); Total Protein 7.4 g/dL (6.4-8.9)
[2020-07-13 22:16] LABS: Troponin I 0.04 ng/mL (< 0.04)
[2020-07-13] MEDS: Melatonin 3 MG TABLET PO PRN (23:01)
[2020-07-13] MEDS: Nystatin POWDER 30 GM BOTTLE TP SCH (23:02)
[2020-07-14] MEDS ORDERED: 0.9 % Sodium Chloride 1,000 ML IVC ONE (01:04)
[2020-07-14] MEDS ORDERED: Potassium Phosphate 44 MEQ in 0.9 % Sodium Chloride 250 ML IVPB ONE (01:30)
[2020-07-14] MEDS ORDERED: Potassium Chloride 40 MEQ, Lidocaine 1% 2 ML in 0.9 % Sodium Chloride 500 ML IVPB ONE (01:30)
[2020-07-14 04:57] LABS: Hematocrit 32.9 % (37.5-50.1); Mean Corpuscular Hemoglobin 29.8 pg (28.0-33.3); Mean Corpuscular Volume 87.5 fL (83.0-100.0); Mean Platelet Volume 10.2 fL (9.4-12.4); Platelet Count 203 K/mcL (140-400); Red Blood Count 3.76 M/mcL (4.19-5.50); Red Cell Distribution Width 13.2 % (11.5-14.5); White Blood Count 10.1 K/mcL (4.3-11.1)
[2020-07-14 05:05] LABS: Hemoglobin 11.2 g/dL (12.9-16.9)
[2020-07-14 05:27] LABS: Calcium 8.5 mg/dL (8.6-10.3); Phosphorous 2.8 mg/dL (2.7-4.5); Potassium 3.3 mEq/L (3.5-5.1); Troponin I 0.05 ng/mL (< 0.04)
[2020-07-14] MEDS: Piperacillin/Tazobactam 3.375 GM in 0.9 % Sodium Chloride Mini Bag 100 ML IVPB SCH ×2 (06:01→17:46)
[2020-07-14] MEDS ORDERED: Piperacillin/Tazobactam 3.375 GM in 0.9 % Sodium Chloride Mini Bag 100 ML IVPB SCH (08:00)
[2020-07-14] MEDS: Nystatin POWDER 30 GM BOTTLE TP SCH ×3 (09:14→21:00)
[2020-07-15] MEDS: Melatonin 3 MG TABLET PO PRN ×2 (01:04→21:06)
[2020-07-15] MEDS: Piperacillin/Tazobactam 3.375 GM in 0.9 % Sodium Chloride Mini Bag 100 ML IVPB SCH ×2 (05:33→17:43)
[2020-07-15 07:07] LABS: Basophils # 0.1 K/mcL (0.0-0.2); Basophils % 0.8 %; Eosinophils # 0.5 K/mcL (0.0-0.6); Eosinophils % 7.1 %; Hematocrit 32.3 % (37.5-50.1); Hemoglobin 10.9 g/dL (12.9-16.9); Immature Granulocytes % 0.3 % (0-4); Lymphocytes # 2.1 K/mcL (0.6-4.6); Lymphocytes % 29.2 %; Mean Corpuscular HGB Conc 33.7 g/dL (31.6-35.5); Mean Corpuscular Hemoglobin 29.3 pg (28.0-33.3); Mean Corpuscular Volume 86.8 fL (83.0-100.0); Mean Platelet Volume 10.2 fL (9.4-12.4); Monocytes # 0.8 K/mcL (0.0-1.3); Monocytes % 11.1 %; Neutrophils # 3.8 K/mcL (1.6-8.9); Platelet Count 214 K/mcL (140-400); Red Blood Count 3.72 M/mcL (4.19-5.50); Red Cell Distribution Width 13.2 % (11.5-14.5); Segmented Neutrophils % 51.5 %; White Blood Count 7.3 K/mcL (4.3-11.1)
[2020-07-15 07:25] LABS: Calcium 8.3 mg/dL (8.6-10.3); Potassium 3.4 mEq/L (3.5-5.1)
[2020-07-15] MEDS: amLODIPine 5 MG TABLET PO SCH (10:19)
[2020-07-15] MEDS: Furosemide 40 MG TABLET PO SCH (10:19)
[2020-07-15] MEDS: hydrALAZINE 25 MG TABLET PO SCH ×3 (10:19→21:05)
[2020-07-15] MEDS: Nystatin POWDER 30 GM BOTTLE TP SCH ×2 (10:20→15:53)
[2020-07-15] MEDS: *HR* Heparin 5,000 UNIT/ML VIAL SQ SCH (15:53)
[2020-07-16 02:43] LABS: Basophils # 0.1 K/mcL (0.0-0.2); Basophils % 0.6 %; Eosinophils # 0.6 K/mcL (0.0-0.6); Eosinophils % 7.1 %; Hematocrit 33.5 % (37.5-50.1); Hemoglobin 11.3 g/dL (12.9-16.9); Immature Granulocytes % 0.5 % (0-4); Lymphocytes # 2.4 K/mcL (0.6-4.6); Lymphocytes % 28.3 %; Mean Corpuscular HGB Conc 33.7 g/dL (31.6-35.5); Mean Corpuscular Volume 85.9 fL (83.0-100.0); Mean Platelet Volume 9.6 fL (9.4-12.4); Monocytes # 0.8 K/mcL (0.0-1.3); Monocytes % 9.7 %; Neutrophils # 4.6 K/mcL (1.6-8.9); Platelet Count 223 K/mcL (140-400); Segmented Neutrophils % 53.8 %; White Blood Count 8.5 K/mcL (4.3-11.1)
[2020-07-16 03:04] LABS: Calcium 8.3 mg/dL (8.6-10.3); Potassium 3.6 mEq/L (3.5-5.1)
[2020-07-16] MEDS: Nystatin POWDER 30 GM BOTTLE TP SCH ×4 (05:46→22:47)
[2020-07-16] MEDS: Piperacillin/Tazobactam 3.375 GM in 0.9 % Sodium Chloride Mini Bag 100 ML IVPB SCH ×3 (05:48→22:22)
[2020-07-16] MEDS: *HR* Heparin 5,000 UNIT/ML VIAL SQ SCH ×2 (05:52→17:16)
[2020-07-16] MEDS: hydrALAZINE 25 MG TABLET PO SCH ×3 (08:23→22:22)
[2020-07-16] MEDS: amLODIPine 5 MG TABLET PO SCH (08:24)
[2020-07-16] MEDS: Furosemide 40 MG TABLET PO SCH (08:24)
[2020-07-16] MEDS: Melatonin 3 MG TABLET PO PRN (23:00)
[2020-07-16] MEDS ORDERED: QUEtiapine Fumarate 25 MG TABLET PO ONE (23:59)
[2020-07-17 02:52] LABS: Basophils # 0.1 K/mcL (0.0-0.2); Basophils % 0.6 %; Eosinophils # 0.7 K/mcL (0.0-0.6); Eosinophils % 6.3 %; Hematocrit 37.4 % (37.5-50.1); Hemoglobin 12.5 g/dL (12.9-16.9); Immature Granulocytes % 0.6 % (0-4); Lymphocytes # 2.4 K/mcL (0.6-4.6); Lymphocytes % 23.6 %; Mean Corpuscular HGB Conc 33.4 g/dL (31.6-35.5); Mean Corpuscular Hemoglobin 28.7 pg (28.0-33.3); Monocytes # 1.1 K/mcL (0.0-1.3); Monocytes % 10.1 %; Neutrophils # 6.1 K/mcL (1.6-8.9); Platelet Count 267 K/mcL (140-400); Red Blood Count 4.35 M/mcL (4.19-5.50); Red Cell Distribution Width 12.9 % (11.5-14.5); Segmented Neutrophils % 58.8 %; White Blood Count 10.4 K/mcL (4.3-11.1)
[2020-07-17 03:02] LABS: Calcium 9.1 mg/dL (8.6-10.3); Potassium 3.5 mEq/L (3.5-5.1)
[2020-07-17] MEDS: Piperacillin/Tazobactam 3.375 GM in 0.9 % Sodium Chloride Mini Bag 100 ML IVPB SCH ×3 (05:18→21:46)
[2020-07-17] MEDS: *HR* Heparin 5,000 UNIT/ML VIAL SQ SCH ×2 (05:18→17:17)
[2020-07-17] MEDS: Furosemide 40 MG TABLET PO SCH (09:46)
[2020-07-17] MEDS: amLODIPine 5 MG TABLET PO SCH (09:46)
[2020-07-17] MEDS: hydrALAZINE 25 MG TABLET PO SCH ×3 (09:46→21:46)
[2020-07-17] MEDS: Nystatin POWDER 30 GM BOTTLE TP SCH ×3 (09:47→23:48)
[2020-07-18] MEDS: Piperacillin/Tazobactam 3.375 GM in 0.9 % Sodium Chloride Mini Bag 100 ML IVPB SCH ×3 (05:57→21:32)
[2020-07-18] MEDS: *HR* Heparin 5,000 UNIT/ML VIAL SQ SCH ×2 (05:57→16:43)
[2020-07-18 06:12] LABS: Hematocrit 40.1 % (37.5-50.1); Hemoglobin 13.2 g/dL (12.9-16.9); Mean Corpuscular HGB Conc 32.9 g/dL (31.6-35.5); Mean Corpuscular Hemoglobin 28.8 pg (28.0-33.3); Mean Corpuscular Volume 87.6 fL (83.0-100.0); Mean Platelet Volume 9.8 fL (9.4-12.4); Platelet Count 276 K/mcL (140-400); Red Blood Count 4.58 M/mcL (4.19-5.50); Red Cell Distribution Width 13.4 % (11.5-14.5); White Blood Count 9.5 K/mcL (4.3-11.1)
[2020-07-18 06:35] LABS: Calcium 9.3 mg/dL (8.6-10.3); Potassium 4.2 mEq/L (3.5-5.1)
[2020-07-18] MEDS: hydrALAZINE 25 MG TABLET PO SCH ×3 (07:53→21:32)
[2020-07-18] MEDS: amLODIPine 5 MG TABLET PO SCH (07:53)
[2020-07-18] MEDS: Furosemide 40 MG TABLET PO SCH (07:53)
[2020-07-18] MEDS: Nystatin POWDER 30 GM BOTTLE TP SCH ×3 (07:53→21:33)
[2020-07-19] MEDS: Piperacillin/Tazobactam 3.375 GM in 0.9 % Sodium Chloride Mini Bag 100 ML IVPB SCH ×3 (05:47→23:16)
[2020-07-19] MEDS: *HR* Heparin 5,000 UNIT/ML VIAL SQ SCH ×2 (05:47→17:46)
[2020-07-19] MEDS: hydrALAZINE 25 MG TABLET PO SCH ×3 (07:54→23:17)
[2020-07-19] MEDS: Furosemide 40 MG TABLET PO SCH (07:54)
[2020-07-19] MEDS: amLODIPine 5 MG TABLET PO SCH (07:54)
[2020-07-19] MEDS: Nystatin POWDER 30 GM BOTTLE TP SCH ×3 (07:55→23:17)
[2020-07-19 09:02] LABS: Calcium 9.2 mg/dL (8.6-10.3); Potassium 3.7 mEq/L (3.5-5.1)
[2020-07-20] MEDS: Piperacillin/Tazobactam 3.375 GM in 0.9 % Sodium Chloride Mini Bag 100 ML IVPB SCH ×3 (05:34→21:52)
[2020-07-20] MEDS: *HR* Heparin 5,000 UNIT/ML VIAL SQ SCH ×2 (05:34→17:44)
[2020-07-20 07:05] LABS: Calcium 8.9 mg/dL (8.6-10.3); Potassium 3.5 mEq/L (3.5-5.1)
[2020-07-20] MEDS: amLODIPine 5 MG TABLET PO SCH ×2 (09:52→10:06)
[2020-07-20] MEDS: Nystatin POWDER 30 GM BOTTLE TP SCH ×3 (09:53→21:53)
[2020-07-20] MEDS: hydrALAZINE 25 MG TABLET PO SCH ×4 (09:53→21:52)
[2020-07-20] MEDS: 0.9 % Sodium Chloride 500 ML IVC SCH (12:25)
[2020-07-20 13:37] LABS: Basophils # 0.1 K/mcL (0.0-0.2); Basophils % 0.6 %; Eosinophils # 0.6 K/mcL (0.0-0.6); Eosinophils % 6.9 %; Hematocrit 35.7 % (37.5-50.1); Hemoglobin 12.1 g/dL (12.9-16.9); Immature Granulocytes % 0.4 % (0-4); Lymphocytes # 1.9 K/mcL (0.6-4.6); Lymphocytes % 22.3 %; Mean Corpuscular HGB Conc 33.9 g/dL (31.6-35.5); Mean Corpuscular Hemoglobin 29.4 pg (28.0-33.3); Mean Corpuscular Volume 86.9 fL (83.0-100.0); Mean Platelet Volume 9.6 fL (9.4-12.4); Monocytes # 0.9 K/mcL (0.0-1.3); Monocytes % 10.7 %; Neutrophils # 4.9 K/mcL (1.6-8.9); Platelet Count 247 K/mcL (140-400); Red Blood Count 4.11 M/mcL (4.19-5.50); Red Cell Distribution Width 13.7 % (11.5-14.5); Segmented Neutrophils % 59.1 %; White Blood Count 8.3 K/mcL (4.3-11.1)
[2020-07-21] MEDS: 0.9 % Sodium Chloride 500 ML IVC SCH ×5 (01:49→23:47)
[2020-07-21] MEDS: *HR* Heparin 5,000 UNIT/ML VIAL SQ SCH ×2 (05:51→16:29)
[2020-07-21] MEDS: Piperacillin/Tazobactam 3.375 GM in 0.9 % Sodium Chloride Mini Bag 100 ML IVPB SCH ×3 (05:51→20:25)
[2020-07-21 10:15] LABS: Calcium 8.6 mg/dL (8.6-10.3); Potassium 3.9 mEq/L (3.5-5.1)
[2020-07-21] MEDS: hydrALAZINE 25 MG TABLET PO SCH ×3 (10:15→20:25)
[2020-07-21] MEDS: amLODIPine 5 MG TABLET PO SCH (10:16)
[2020-07-21] MEDS: Furosemide 20 MG TABLET PO SCH (10:16)
[2020-07-21] MEDS: Nystatin POWDER 30 GM BOTTLE TP SCH ×3 (10:22→20:26)
[2020-07-22 02:14] LABS: Basophils # 0.1 K/mcL (0.0-0.2); Eosinophils # 0.6 K/mcL (0.0-0.6); Eosinophils % 6.1 %; Hematocrit 34.2 % (37.5-50.1); Hemoglobin 11.4 g/dL (12.9-16.9); Immature Granulocytes % 0.3 % (0-4); Lymphocytes # 2.5 K/mcL (0.6-4.6); Lymphocytes % 27.9 %; Mean Corpuscular HGB Conc 33.3 g/dL (31.6-35.5); Mean Corpuscular Hemoglobin 29.5 pg (28.0-33.3); Mean Corpuscular Volume 88.4 fL (83.0-100.0); Mean Platelet Volume 9.9 fL (9.4-12.4); Monocytes % 10.7 %; Neutrophils # 4.9 K/mcL (1.6-8.9); Platelet Count 236 K/mcL (140-400); Red Blood Count 3.87 M/mcL (4.19-5.50); Red Cell Distribution Width 13.6 % (11.5-14.5); White Blood Count 9.1 K/mcL (4.3-11.1)
[2020-07-22 02:35] LABS: Calcium 8.4 mg/dL (8.6-10.3)
[2020-07-22] MEDS: *HR* Heparin 5,000 UNIT/ML VIAL SQ SCH (04:47)
[2020-07-22] MEDS: Piperacillin/Tazobactam 3.375 GM in 0.9 % Sodium Chloride Mini Bag 100 ML IVPB SCH ×2 (04:47→15:45)
[2020-07-22] MEDS: 0.9 % Sodium Chloride 500 ML IVC SCH ×2 (06:35→15:44)
[2020-07-22] MEDS: hydrALAZINE 25 MG TABLET PO SCH (08:02)
[2020-07-22] MEDS: Nystatin POWDER 30 GM BOTTLE TP SCH (08:02)
[2020-07-22] MEDS: Furosemide 20 MG TABLET PO SCH (08:02)
[2020-07-22] MEDS: amLODIPine 5 MG TABLET PO SCH (08:03)
[2020-07-22 12:05] VITALS: BP 165/74
== END 2020-07-22 17:38 | DRG 698 ==
LOC: 2ANU → SUATTDRO 07-16 09:08
PROVIDERS: ADMIT Internal Medicine; ATTEND Internal Medicine